=== PATIENT | male | born 1950 | race Caucasian/White ===

== ENCOUNTER 2016-06-08 11:04 | Outpatient (CLI) | payer MEDICARE, OTHER | END 2016-06-08 11:05 | disposition home or self-care (01) | DX: M19.011 Primary osteoarthritis, right shoulder (principal) ==

== ENCOUNTER 2016-11-23 09:09 | Outpatient (CLI) | payer MEDICARE, OTHER ==
--- NOTE | 2016-11-23 12:01 | CT Report ---
CT LUMBAR SPINE WITHOUT CONTRAST INDICATION: 66-year-old male with low back pain. Please assess. TECHNIQUE: Helical scan with reconstruction into 2 mm axial images. In addition, sagittal and coronal reformatio ns have been generated. In accordance with CT protocol optimization, one or more of the following dose reduction techniques w ere utilized for this exam: automated exposure control, adjustment of mA and/or KV based on patient s ize, or use of iterative reconstructive technique. COMPARISON: None. FINDINGS: There are 5 [id number], lumbar-type vertebrae. There is a minor, dextroconvex curvature with apex at L3. In the sagittal plane there is mild retroli sthesis of L5 on S1 (roughly 3.5 mm) with minor retrolisthesis of L1 on L2, L2 on L3 and L3 on L4. Al ignment is otherwise unremarkable. There is mild anterior wedging of the T12 vertebral body. This can be seen as a normal anatomical sarah iant at the thoracolumbar junction or this may represent the sequela of remote, endplate compression fracture. The vertebral body heights are otherwise maintained. The pedicles and posterior elements ap pear intact. No lytic or destructive bone lesion is demonstrated. There is moderate to severe degenerative disk space narrowing at L5-S1, most prominent paracentrally to the right. Vacuum changes are seen within the disk. The lumbar disk space heights are otherwise re latively preserved. Axial images: T12-L1: No disk herniation. No spinal canal or foraminal stenosis. L1-L2: Circumferential disk bulge with small left intra-/extraforaminal protrusion. Mild redundancy o f ligamenta flava. Mild prominence of intralaminar fat pad. Circumferential thecal sac compression. T he mid sagittal canal diameter appears to be on the order of about 9 mm. This should not represent si gnificant spinal stenosis. There is mild left foraminal stenosis. L2-L3: Small intra-/extraforaminal protrusions bilaterally. Mild redundancy of ligamenta flava and mi ld prominence of intralaminar fat pad. Mass effect on the dorsal aspect of the thecal sac without sig nificant appearing spinal stenosis. Minimal foraminal narrowing. L3-L4: Small intra-/extraforaminal protrusions bilaterally. Mild redundancy of ligamenta flava. Promi nent intralaminar fat pad. Mass effect on the dorsal aspect of the dural sac. The mid sagittal canal diameter is reduced to about 7.6 mm, compared to about 9 mm at the level above. This suggests at leas t mild spinal canal narrowing at this level. There is mild foraminal narrowing bilaterally. L4-L5: Circumferential disk bulge. Broad-based, left paracentral and intra-/extraforaminal protrusion or extrusion. There is fairly advanced degenerative facet arthrosis. Prominent vacuum changes are se en in the facet joints bilaterally. Mild to moderate bony hypertrophy. Moderate redundancy of ligamen ta flava. Mild prominence of intralaminar fat pad. Circumferential thecal sac compression with at zakiya st moderate generalized (central and subarticular zone) spinal stenosis. Suspect significant left-shai ed foraminal narrowing. Perineural fat surrounding exiting left L5 nerve root appears effaced, possib ly secondary to superiorly directed, intraforaminal extrusion. There may be compromise of exiting lef t L4 nerve root. L5-S1: Broad-based posterior protrusion with associated osteophyte. There is contact with the dural s leeves for traversing S1 nerve roots. However, no obvious mass effect on either S1 nerve root is demo nstrated. No central zone spinal stenosis. Broad-based intra-/extraforaminal disk herniations with as sociated osteophyte on the right. Degenerative facet arthrosis with mild left and moderate right face t hypertrophy. Moderate to severe left and severe right foraminal stenoses. Perineural fat surroundin g exiting L5 nerve roots is partially effaced bilaterally. Of note, there is ankylosis of the facet joints bilaterally. This may be secondary to long-standing a dvanced degenerative joint disease or could represent the sequela of previous sacroiliitis. Noted is a small metal density object, in posterior cortex right ilium with extension into adjacent, soft tissues (see images number 130 through 138, presumably related to known right-sided total hip ar throplasty. There is minor calcified atherosclerotic plaque in the abdominal aorta. No aneurysm is demonstrated. IMPRESSION: 1. Degenerative disk and facet changes are seen throughout the lumbar spine as documented in detail alex arevalo. 2. There is potentially significant foraminal narrowing on the left at L4-L5 and bilaterally at L5-S1 . There certainly could be compromise of one or more of the exiting right L5, left L4 and/or left L5 nerve roots. Clinical correlation is advised. 3. Degenerative changes give rise to at least moderate spinal stenosis at the L4-L5 level. 4. 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 5. No other specific diagnostic findings. Referring Provider Line: [phone] SITE ID: [id number]
== END 2016-11-23 09:10 | disposition home or self-care (01) ==
LOC: DI 09:09
PROVIDERS: ATTEND Orthopaedic Surgery
DX: M51.26 Other intervertebral disc displacement, lumbar region (principal); M51.36 Other intervertebral disc degeneration, lumbar region; M47.896 Other spondylosis, lumbar region; M51.27 Other intervertebral disc displacement, lumbosacral region; M43.27 Fusion of spine, lumbosacral region; M47.897 Other spondylosis, lumbosacral region; M43.16 Spondylolisthesis, lumbar region
CPT/HCPCS: 72131

== ENCOUNTER 2017-01-19 10:55 | Outpatient (CLI) | payer MEDICARE, OTHER ==
[2017-01-19 18:05] LABS: BASOPHILS # (AUTO) 0.1 10^3/uL (0.0-0.1); EOSINOPHILS # (AUTO) 0.1 10^3/uL (0.0-0.7); EOSINOPHILS % (AUTO) 2.6 %; HCT - HEMATOCRIT 45.6 % (42.0-52.0); HGB - HEMOGLOBIN 15.2 g/dL (14.0-18.0); LYMPHOCYTES # (AUTO) 1.3 10^3/uL (1.5-3.5); LYMPHOCYTES % (AUTO) 25.4 %; MEAN CORPUSCULAR HEMOGLOBIN 34.9 pg (27.0-31.0); MEAN CORPUSCULAR HGB CONC 33.3 g/dL (32.0-36.0); MEAN CORPUSCULAR VOLUME 104.9 fL (80.0-94.0); MEAN PLATELET VOLUME 7.9 fL (7.4-11.4); MONOCYTES # (AUTO) 0.4 10^3/uL (0.0-1.0); MONOCYTES % (AUTO) 8.2 %; NEUTROPHILS # (AUTO) 3.3 10^3/uL (1.5-6.6); NEUTROPHILS % (AUTO) 62.8 %; NUCLEATED RED BLOOD CELLS AUTO 0.1 /100WBC; RED BLOOD COUNT 4.35 10^6/uL (4.70-6.10); RED CELL DISTRIBUTION WIDTH 14.9 % (12.0-15.0); UNCORRECTED WHITE BLOOD COUNT 5.2 x10^3/uL; WHITE BLOOD COUNT 5.2 x10^3/uL (4.8-10.8)
[2017-01-19 18:28] LABS: ALBUMIN/GLOBULIN RATIO 1.1 (1.0-2.2); BILIRUBIN,TOTAL 0.7 mg/dL (0.2-1.0); BUN - BLOOD UREA NITROGEN 10 mg/dL (6-20); CALCIUM 8.8 mg/dL (8.5-10.3); CARBON DIOXIDE - CO2 26 mmol/L (21-32); CHLORIDE 103 mmol/L (101-111); CHOL/HDL RATIO 3.9 (<5.0); CHOLESTEROL 188 mg/dL; CREATININE 0.9 mg/dL (0.6-1.2); GFR - MDRD 84 (>89); GLUCOSE 104 mg/dL (70-100); HDL CHOLESTEROL 48 mg/dL; LDL/HDL RATIO 2.3 (<3.6); POTASSIUM 3.7 mmol/L (3.5-5.0); SODIUM 137 mmol/L (135-145); TOTAL PROTEIN 7.2 g/dL (6.7-8.2); TRIGLYCERIDES 139 mg/dL; VLDL CHOLESTEROL 28 mg/dL
[2017-01-19 18:56] LABS: HEMOGLOBIN A1C 0.58 g/dL
== END 2017-01-19 10:56 | disposition home or self-care (01) ==
LOC: LAB.F 10:55
PROVIDERS: ATTEND Nurse Practitioner Primary Care
DX: E55.9 Vitamin D deficiency, unspecified (principal); R73.01 Impaired fasting glucose; I10 Essential (primary) hypertension; E88.81 Metabolic syndrome and other insulin resistance; F10.10 Alcohol abuse, uncomplicated; E78.5 Hyperlipidemia, unspecified
CPT/HCPCS: 36415; 80053; 80061; 82306; 83036; 84443; 85025

== ENCOUNTER 2018-02-08 09:08 | Outpatient (CLI) | payer MEDICARE, OTHER ==
[2018-02-08 17:50] LABS: BASOPHILS % (AUTO) 0.8 %; EOSINOPHILS # (AUTO) 0.2 10^3/uL (0.0-0.7); EOSINOPHILS % (AUTO) 3.1 %; HGB - HEMOGLOBIN 16.2 g/dL (14.0-18.0); LYMPHOCYTES # (AUTO) 1.2 10^3/uL (1.5-3.5); LYMPHOCYTES % (AUTO) 21.7 %; MEAN CORPUSCULAR VOLUME 111.8 fL (80.0-94.0); MEAN PLATELET VOLUME 7.7 fL (7.4-11.4); MONOCYTES # (AUTO) 0.5 10^3/uL (0.0-1.0); MONOCYTES % (AUTO) 9.3 %; NEUTROPHILS # (AUTO) 3.6 10^3/uL (1.5-6.6); NEUTROPHILS % (AUTO) 65.1 %; PLT - PLATELET COUNT 199 10^3/uL (130-450); RED BLOOD COUNT 4.25 10^6/uL (4.70-6.10); RED CELL DISTRIBUTION WIDTH 13.6 % (12.0-15.0); WHITE BLOOD COUNT 5.6 x10^3/uL (4.8-10.8)
[2018-02-08 18:08] LABS: HB2 TOTAL 17.1 g/dL; HEMOGLOBIN A1C 0.59 g/dL; HEMOGLOBIN A1C % 5.3 % (4.6-6.2)
[2018-02-08 18:14] LABS: ALBUMIN 3.8 g/dL (3.2-5.5); ALBUMIN/GLOBULIN RATIO 1.1 (1.0-2.2); ALKALINE PHOSPHATASE 74 IU/L (42-121); ALT ALANINE AMINOTRANSFERASE 36 IU/L (10-60); AST ASPARTATE AMINOTRANSFERASE 34 IU/L (10-42); BILIRUBIN,TOTAL 0.7 mg/dL (0.2-1.0); BUN - BLOOD UREA NITROGEN 11 mg/dL (6-20); CALCIUM 8.9 mg/dL (8.5-10.3); CARBON DIOXIDE - CO2 28 mmol/L (21-32); CHLORIDE 102 mmol/L (101-111); CHOL/HDL RATIO 3.9 (<5.0); CHOLESTEROL 205 mg/dL; GFR - MDRD 74 (>89); GLUCOSE 116 mg/dL (70-100); HDL CHOLESTEROL 53 mg/dL; LDL CHOLESTEROL,CALCULATED 130 mg/dL; LDL/HDL RATIO 2.5 (<3.6); SODIUM 137 mmol/L (135-145); TOTAL PROTEIN 7.2 g/dL (6.7-8.2); VLDL CHOLESTEROL 22 mg/dL
[2018-02-08 18:50] LABS: DIFFERENTIAL COMMENT MANUAL=AUTO DIFF; PLATELET MORPHOLOGY NORMAL APPEARANCE (NORMAL); RBC MORPHOLOGY (MULTIPLE) NORMAL APPEARANCE (NORMAL)
[2018-02-08 18:51] LABS: PLATELET ESTIMATE, MANUAL NORMAL (130-450,000) (NORMAL)
== END 2018-02-08 09:09 | disposition home or self-care (01) ==
LOC: LAB.F 09:08
PROVIDERS: ATTEND Nurse Practitioner Primary Care
DX: E78.5 Hyperlipidemia, unspecified (principal); R73.01 Impaired fasting glucose; E55.9 Vitamin D deficiency, unspecified; E88.81 Metabolic syndrome and other insulin resistance; I10 Essential (primary) hypertension; M10.9 Gout, unspecified; C43.9 Malignant melanoma of skin, unspecified; F10.10 Alcohol abuse, uncomplicated
CPT/HCPCS: 36415; 80053; 80061; 82306; 83036; 83721; 84443; 85025

== ENCOUNTER 2018-05-31 13:34 | Outpatient (CLI) | payer MEDICARE, OTHER ==
[2018-05-31 15:36] LABS: PSA FREE 0.173 ng/mL (0.16-2.81)
[2018-05-31 15:37] LABS: PSA TOTAL 1.618 ng/mL (0.000-2.000)
== END 2018-05-31 13:35 | disposition home or self-care (01) ==
LOC: LAB 13:34
PROVIDERS: ATTEND Nurse Practitioner Primary Care
DX: R39.9 Unspecified symptoms and signs involving the genitourinary system (principal); R97.20 Elevated prostate specific antigen [PSA]
CPT/HCPCS: 36415; 84153; 84154

== ENCOUNTER 2018-10-12 09:54 | Outpatient (CLI) | payer MEDICARE, OTHER ==
--- NOTE | 2018-10-13 15:59 | XRAY Report ---
Reason: HIP JOINT PAIN, LEFT OSTEOARTHRITIS Procedure Date: 10/12/2018 Accession Number: [id number] / [id number] Procedure: XR - Hip w/Pelvis 2-3V LT CPT Code: FULL RESULT: EXAM: LEFT HIP RADIOGRAPHY EXAM DATE: 10/12/2018 10:13 AM. CLINICAL HISTORY: HIP JOINT PAIN, LEFT OSTEOARTHRITIS. COMPARISON: HIP 2 VIEW RT 05/08/2015 12:11 PM. TECHNIQUE: 2 views. FINDINGS: Bones: Normal. No fractures or bone lesion. Joints: Mild to moderate left hip joint space narrowing with subchondral sclerosis. Prior right total hip arthroplasty. Soft Tissues: Normal. No soft tissue swelling. IMPRESSION: 1. Mild to moderate left hip degenerative changes with some progression since 05/08/2015. Kellgren Jt Grade 2-3. 2. Prior right total hip arthroplasty. Kellgren and Jt classification of osteoarthritis: Grade 0: no radiographic features of osteoarthritis are present Grade 1: doubtful joint space narrowing (JSN) and possible osteophytic lipping Grade 2: definite osteophytes and possible JSN on anteroposterior weight-bearing radiograph Grade 3: multiple osteophytes, definite JSN, sclerosis, possible bony deformity Grade 4: large osteophytes, marked JSN, severe sclerosis and definite bony deformity RADIA
== END 2018-10-12 09:55 | disposition home or self-care (01) ==
LOC: DI 09:54
PROVIDERS: ATTEND Nurse Practitioner
DX: M16.12 Unilateral primary osteoarthritis, left hip (principal); Z96.641 Presence of right artificial hip joint

== ENCOUNTER 2019-02-06 09:53 | Outpatient (CLI) | payer MEDICARE, OTHER ==
[2019-02-06 12:21] VITALS: BP 130/70
--- NOTE | 2019-02-06 12:21 | SLEEP CARE CONSULTATION ---
Information from patient questionnaire entered by Li Leone. I have reviewed and concur with the information entered by Li Leone. This document represents the service I personally performed and the decisions made by me, Zonia Rosales, RN, MSN, PACKING MACHINE INSPECTOR. History of Present Illness Reason for Visit: Previously diagnosed sleep apnea (Originally diagnosed in 1997 but unable to tolerate CPAP. Re-evaluated in 2003 and started using CPAP nightly. Again re-evaluated in 2013 with HST with AHI of 75 and lowest oxygen saturation of 73%. ), sleep apnea on CPAP therapy (He has been using CPAP nightly since diagnosis. HIs Airsense CPAP stopped working last July. He informed his DME who stated no longer on warranty and quoted large sum to repair until could update. He restarted use of his old CPAP Remstar which does not have data card. He has used it 6, 950 hours and 730 hours greated than 4 hours. ), Re-establish care (Patient last seen here in 2011. Since then has seen Dr. Roman who longer takes Medicare. Last sleep study completed ), Other (His Air Sense CPAP was set at 11-18.2cmH20 with median pressure of 12.9cm and 95th pressure 14.4cmH20. His Remstar is set at [id number].) Chief Complaint: reports: Unrefreshed sleep, Observed pauses in breathing, Fatigue Duration of Symptoms: 20 years Usual bedtime: 9:30 pm Time it takes to fall asleep: 30 mins or more Snores at night: No (sleeps alone) Observed to quit breathing while asleep: Yes (without CPAP ) Number of times waking at night: 3-4 Reasons for waking at night: reports: Bathroom Toss, Turn, or Twitch while sleeping: Yes Recalls having dreams: Yes (seldom) Usually gets out of bed at: 7:30 am Feels refreshed in the morning: No Morning headache: No Sleepy or fatigued during the day: Yes Ever fallen asleep while driving: No Takes day naps: No Prior sleep studies: Yes Year and Where: 1997 and 2003 in [place], 2014 Dr. Roman - Parasomnia Symptoms Ever been unable to move upon waking from sleep: No Walks in sleep: No Talks in sleep: No Ever acted out dreams in sleep: No Ever felt weak in the knees when startled or emotional: No Bothered by creepy, crawly, restless sensations in legs: Yes (rare ) Problems with memory or concentration: Yes CPAP Compliance Data - Data Reviewed with Patient Average duration of nightly device use: 9 hours Compliance rate %: 97 (June 2017) Current pressure setting (cmH2O): 11-18.2 Average residual AHI: 2 Subjective Patient concerns: reports: nasal congestion (mild in morning), dry mouth, nose, throat (mouth - most nights), other (uses nasal pillows). denies: aerophagia, mask discomfort, air blowing in eyes, mask leak noise, condensation in mask/hose, epistaxis Observed to snore while using device: No (sleeps alone ) Current pressure setting perceived as: comfortable On therapy, patient: reports: sleeping better, more rested overall (but residual fatigue.). denies: drowsiness while driving Initial [place] Sleepiness Scale score: 1 (in 2011) Current [place] Sleepiness Scale score: 2 Past Medical History Past Medical History: reports: Hypertension, Claustrophobia, Arthritis, Gout, Other (right hip replacement October 2018) Social History The patient is retired. Patient is Single and lives in [place]. Have you smoked in the past 12 months: No Alcohol use: Yes Alcohol amount and frequency: 2-4 daily Caffeine use: Yes Caffeine amount and frequency: 1 cup a day Family History Family history of sleep disordered breathing: No Allergies and Home Medications Known drug allergies: No Allergy and home medication list: allopurinol daily bupropion daily propranolol daily Review of Systems Weight gain over past 5 years: 40 Cardiovascular: reports: high blood pressure Respiratory: reports: shortness of breath (with stairs) Urinary: reports: frequency Neurological: reports: gait or balance problems (recent hip surgery of left and right replaced 10 years. ) Psychiatric: reports: anxiety, claustrophobia Ear/Nose/Throat: reports: sinus problems, dry mouth/throat Musculoskeletal: reports: joint pain, neck pain, back pain Immunologic: reports: sneezing Physical Exam Blood Pressure: 130/70 Cuff size: long Heart Rate: 64 O2 Saturation: 97 Height: 5 ft 7 in Weight (kg): 279 lb 6.4 oz Body Mass Index: 43.7 BMI Classification: Class 3 HEENT: No craniofacial malformation Nostrils: partially obstructed Turbinates: boggy Septum: deviated left Mouth and throat: narrow oropharynx Soft palate: long Hard palate: normal Uvula: normal (trimmed), edematous Uvula visualization: 0% Mallampati Class IV Tongue: normal in size Tonsils: small Chin and jaw: normal size and position Heart: regular rate and rhythm Lungs: clear bilaterally Abdomen: soft Extremities: no edema or clubbing Impression and Plan 1. Obstructive Sleep Apnea-Hypopnea Syndrome, very severe,on most recent evaluation in 2012 HST and reports improved sleep quality with CPAP use and daytime restfulness but residual fatigue. He reports being originally diagnosed about 1997 with unknown apnea severity and unable to use CPAP due to claustrophobia with a full face mask. Evidently a nasal mask was not offered. He went back for re-evaluation when started waking to gasping for air with sleep in 2003 in [place] and diagnosed with unknown severity of apnea. He started using CPAP with success with use of nasal pillows mask style. He states he has been using CPAP nightly since. However his last CPAP, an AirSense autoset stopped working in July 2017 from compliance obtained from SD card. He had good apnea control with a residual AHI of 2 on autorange of 11-18.2cmH20. He contacted his DME where he obtained the device who informed him that the warranty was no longer valid and it would cost significant funds to repair. He was unable to sleep without CPAP. Thus he remembered his old CPAP from original diagnosis was stored in closet and began using it. However, the data card is too old for download. [employer] does not accept this format when tried to obtain data. I was able to use a cord from an old CPAP in office to determine current total use of CPAP of 6950 hours total. The DME he obtained his Air Sense stopped business and transfered patient to [facility] where he is getting his mask supplies. I will try to see if his CPAP can be repaired or replaced by his current DME [facility]. Until then the Remstar was reset at [id number] as his Airsense from [id number] as he felt the AirSense pressure more comfortable. I will have patient return in 2 months to check efficacy of his new or repaired CPAP. For his oral dryness, he is advised to restart the humidity now that he has found the instructions. This could also reduce his nasal congestion. I discussed the importance of losing weight as his BMI is 40 which can increase health risks. He has an appointment w ith his PCP soon and can discuss at that time. Patient's apnea severity and rationale for treatment to reduce apnea, improve sleep quality and reduce cardiovascular and cerebrovascular events was reviewed. I also reviewed the benefit of consistent device use of CPAP for hypertension, anxiety. His physical exam showed narrow airway and obesity which contribute to apnea risk. Patient does not want another polysomnograpy to re-evaluate his apnea. I informed him that it appears he has continued to use CPAP and that another evaluation would only be completed if insurance required for him to replace his CPAP. I also explained a HST home sleep study could be completed as before. * Repair or Replace AirSense auto CPAP * Change Remstar CPAP pressure to 11-18 cmH2O * Add humidifier to reduce oral dryness. * Notify me if snoring with mask or feeling that the pressure is too much or too little * Attempt to lose weight and discuss with PCP * Return for follow up in 2 months, or sooner if concerns arise I spent 100% of this 60 minute visit face to face with the patient with greater than 50% of this was spent time counseling the patient and coordination of care.
== END 2019-02-06 09:54 | disposition home or self-care (01) ==
LOC: SC 09:53
PROVIDERS: ATTEND Nurse Practitioner Family
DX: G47.33 Obstructive sleep apnea (adult) (pediatric) (principal)
CPT/HCPCS: 99205; G0463; 99212

== ENCOUNTER 2019-02-21 07:48 | Outpatient (CLI) | payer MEDICARE, OTHER ==
[2019-02-21 08:37] LABS: BASOPHILS # (AUTO) 0.1 10^3/uL (0.0-0.1); BASOPHILS % (AUTO) 0.9 %; EOSINOPHILS # (AUTO) 0.2 10^3/uL (0.0-0.7); EOSINOPHILS % (AUTO) 2.7 %; HGB - HEMOGLOBIN 16.2 g/dL (14.0-18.0); LYMPHOCYTES # (AUTO) 1.1 10^3/uL (1.5-3.5); LYMPHOCYTES % (AUTO) 20.6 %; MEAN CORPUSCULAR HEMOGLOBIN 35.1 pg (27.0-31.0); MEAN CORPUSCULAR HGB CONC 32.9 g/dL (32.0-36.0); MEAN CORPUSCULAR VOLUME 106.5 fL (80.0-94.0); MEAN PLATELET VOLUME 9.4 fL (7.4-11.4); MONOCYTES # (AUTO) 0.4 10^3/uL (0.0-1.0); NEUTROPHILS # (AUTO) 3.7 10^3/uL (1.5-6.6); NEUTROPHILS % (AUTO) 66.7 %; PLT - PLATELET COUNT 237 10^3/uL (130-450); RED BLOOD COUNT 4.62 10^6/uL (4.70-6.10); RED CELL DISTRIBUTION WIDTH 13.3 % (12.0-15.0); WHITE BLOOD COUNT 5.5 x10^3/uL (4.8-10.8)
[2019-02-21 08:43] LABS: ALBUMIN 3.6 g/dL (3.2-5.5); ALBUMIN/GLOBULIN RATIO 0.9 (1.0-2.2); ALKALINE PHOSPHATASE 89 IU/L (42-121); ALT ALANINE AMINOTRANSFERASE 28 IU/L (10-60); AST ASPARTATE AMINOTRANSFERASE 28 IU/L (10-42); BILIRUBIN,TOTAL 0.8 mg/dL (0.2-1.0); BUN - BLOOD UREA NITROGEN 14 mg/dL (6-20); CALCIUM 9.1 mg/dL (8.5-10.3); CARBON DIOXIDE - CO2 26 mmol/L (21-32); CHLORIDE 104 mmol/L (101-111); CHOLESTEROL 206 mg/dL; CREATININE 0.8 mg/dL (0.6-1.2); GFR - MDRD 96 (>89); GLUCOSE 113 mg/dL (70-100); HDL CHOLESTEROL 51 mg/dL; LDL CHOLESTEROL,CALCULATED 106 mg/dL; LDL/HDL RATIO 2.1 (<3.6); SODIUM 138 mmol/L (135-145); TOTAL PROTEIN 7.6 g/dL (6.7-8.2); URIC ACID 5.3 mg/dL (2.6-7.2); VLDL CHOLESTEROL 49 mg/dL
[2019-02-21 09:02] LABS: HB2 TOTAL 16.7 g/dL; HEMOGLOBIN A1C 0.6 g/dL; HEMOGLOBIN A1C % 5.4 % (4.6-6.2)
== END 2019-02-21 07:49 | disposition home or self-care (01) ==
LOC: LAB 07:48
PROVIDERS: ATTEND Nurse Practitioner
DX: Z00.00 Encounter for general adult medical examination without abnormal findings (principal); D75.89 Other specified diseases of blood and blood-forming organs; R73.01 Impaired fasting glucose; E78.5 Hyperlipidemia, unspecified; E55.9 Vitamin D deficiency, unspecified; F10.10 Alcohol abuse, uncomplicated; M10.9 Gout, unspecified; I10 Essential (primary) hypertension
CPT/HCPCS: 36415; 80053; 80061; 82306; 83036; 83721; 84443; 84550; 85025

== ENCOUNTER 2019-04-16 13:38 | Day surgery (SDC) | payer MEDICARE, OTHER ==
[2019-04-16] MEDS ORDERED: LACTATED RINGERS 1,000 ML IV ONE (14:17)
[2019-04-16] MEDS ORDERED: fentaNYL 250 MCG/5 ML VIAL IVP ONE (16:08)
[2019-04-16] MEDS ORDERED: MIDAZOLAM 2 MG/2 ML VIAL IVP ONE (16:08)
[2019-04-16 17:08] VITALS: BP 127/81
== END 2019-04-16 13:39 | disposition home or self-care (01) ==
LOC: SDS 13:38
PROVIDERS: ATTEND Surgery
PROC: 0DJD8ZZ Inspection of Lower Intestinal Tract, Via Natural or Artificial Opening Endoscopic (ICD-10-PCS; principal; 2019-04-16 14:45)
DX: Z12.11 Encounter for screening for malignant neoplasm of colon (principal); K57.30 Diverticulosis of large intestine without perforation or abscess without bleeding; E66.9 Obesity, unspecified; I10 Essential (primary) hypertension; Z85.820 Personal history of malignant melanoma of skin; Z87.891 Personal history of nicotine dependence; Z68.41 Body mass index [BMI] 40.0-44.9, adult; Z79.899 Other long term (current) drug therapy
CPT/HCPCS: G0121; J7120

== ENCOUNTER 2019-10-16 14:02 | Outpatient (CLI) | payer MEDICARE, OTHER ==
--- NOTE | 2019-10-16 11:30 | SLEEP CARE CONSULTATION ---
Information from patient questionnaire entered by Li Leone. I have reviewed and concur with the information entered by Li Leone. This document represents the service I personally performed and the decisions made by me, Zonia Rosales, RN, MSN, FURNITURE ARRANGER. History of Present Illness Service Date and Time: 10/16/2019 1100 Previous diagnosis: Very Severe, Obstructive Sleep Apnea-Hypopnea Syndrome AHI: 75 (in 2012) Reason for follow up: other (9 month, new device) Equipment type: CPAP Equipment obtained from: [employer] (getting suppplies as needed) Mask style: Nasal pillows Backup mask available: No (keep current mask as spare when replaced) Last cushion change: 2 weeks Prior sleep studies: Yes Year and Where: 2012 - [facility] Type of Sleep Study: Home sleep study HPI additional information: Patient has been notified that he is due for a new CPAP next week. Since then he has been using an old CPAP that does not have a data that can be read - no data at this visit. Last time seen, I had to plug in device and read the device hours of use. Patient states he uses his CPAP nightly from 9:30pm to 7:30 am. He is anxious to have his old CPAP replaced. Subjective Patient concerns: reports: dry mouth, nose, throat (occasional dry mouth - mild ). denies: aerophagia, mask discomfort, air blowing in eyes, mask leak noise, condensation in mask/hose, nasal congestion, epistaxis, other Observed to snore while using device: No Current pressure setting perceived as: comfortable On therapy, patient: reports: sleeping better, awakening more refreshed, being more awake and alert during the day, more rested overall, drowsiness while driving Initial [place] Sleepiness Scale score: 1 (in 2011) Allergies and Home Medications Home medication list reviewed: No (no changes stated) Review of Systems Review of systems same as previous: Yes Physical Exam Height: 5 ft 7 in Weight: 285 lb (home weight) Body Mass Index: 44.6 BMI Classification: Morbidly Obese Impression and Plan 1. Obstructive Sleep Apnea-Hypopnea Syndrome, very severe, with unknown treatment compliance and unknown apnea control. As noted at last visit note, patient is using his old CPAP and his data card no longer is able to be downloaded on [employer]. At last visit, I was able to check hours used on his device and pressure settings only. Patient states that he uses CPAP nightly for 9-10 hours. I asked about length of time and it appears patient will go to bed early if nother to do. I explained how most people require 7-9 hours of sleep. Extra sleep or time in bed can contribute to fatigue or be a sign of another medical condition. He is advised to discuss with his PCP and agreed. On CPAP therapy, the patient has better sleep quality and is more rested overall. He is very pleased with benefit of treatment and pleased that he can now update his CPAP. An order will be written. Compliance guidelines reviewed and patient advised to contact my office to set up a follow up appointment as soon as he receives his new CPAP. His Oral dryness can be reduced by adjusting humidity setting higher. General verbal instructions given but patient stated he will defer until he gets new device which he knows how to adjust settings. It was also noted that he is morbidly obese with current weight. He states he struggles with weight and is aware of need to lose. I discussed health risks associated with obesity are similar to untreated severe apnea. I counseled him to discuss with his PCP and a referral to a off track betting manager as a assistant football coach to assist him to lose weight. I have had many patients lose weight with help of a off track betting manager. He agreed with plan. Patient's apnea severity and rationale for treatment to reduce apnea, improve sleep quality and reduce hypertension, cardiovascular and cerebrovascular events was reviewed. * Update Device set at autoCPAP pressure at 11-18 cmH2O * adjust humidity * Notify me if snoring with mask or feeling that the pressure is too much or too little * Attempt to lose weight * Call this office if any problems using CPAP * Return for follow up in one month after new device, or sooner if concerns arise Visit Type: Telehealth Phone Patient Location: Home Location of Provider: Home Patient agrees and consents to this telehealth visit type: Yes Patient agrees to have their insurance billed: Yes Time Spent with Patient (minutes): 10+ Provider Statement: I spent 100% of the Telehealth Phone Call with the patient with greater than 50% spent counseling the patient and coordination of care.
== END 2019-10-16 14:03 | disposition home or self-care (01) ==
LOC: SC 14:02
PROVIDERS: ATTEND Nurse Practitioner Family
DX: G47.33 Obstructive sleep apnea (adult) (pediatric) (principal); E66.01 Morbid (severe) obesity due to excess calories; Z68.41 Body mass index [BMI] 40.0-44.9, adult

== ENCOUNTER 2019-12-04 10:11 | Outpatient (CLI) | payer MEDICARE, OTHER | END 2019-12-04 10:12 | disposition home or self-care (01) | LOC: LAB 10:11 | PROVIDERS: ATTEND Nurse Practitioner | DX: Z11.59 Encounter for screening for other viral diseases (principal) | CPT/HCPCS: 81599 ==

== ENCOUNTER 2020-02-19 08:27 | Outpatient (CLI) | payer MEDICARE, OTHER ==
[2020-02-19 09:08] LABS: BASOPHILS % (AUTO) 0.9 %; EOSINOPHILS # (AUTO) 0.2 10^3/uL (0.0-0.7); EOSINOPHILS % (AUTO) 3.6 %; HGB - HEMOGLOBIN 15.8 g/dL (14.0-18.0); LYMPHOCYTES # (AUTO) 1.2 10^3/uL (1.5-3.5); LYMPHOCYTES % (AUTO) 27.8 %; MEAN CORPUSCULAR HEMOGLOBIN 38.3 pg (27.0-31.0); MEAN CORPUSCULAR HGB CONC 34.5 g/dL (32.0-36.0); MEAN CORPUSCULAR VOLUME 111.2 fL (80.0-94.0); MEAN PLATELET VOLUME 9.5 fL (7.4-11.4); MONOCYTES # (AUTO) 0.4 10^3/uL (0.0-1.0); MONOCYTES % (AUTO) 8.4 %; NEUTROPHILS # (AUTO) 2.6 10^3/uL (1.5-6.6); NEUTROPHILS % (AUTO) 58.8 %; PLT - PLATELET COUNT 191 10^3/uL (130-450); RED BLOOD COUNT 4.12 10^6/uL (4.70-6.10); RED CELL DISTRIBUTION WIDTH 13.1 % (12.0-15.0); WHITE BLOOD COUNT 4.4 x10^3/uL (4.8-10.8)
[2020-02-19 09:12] LABS: ALBUMIN 3.6 g/dL (3.2-5.5); ALBUMIN/GLOBULIN RATIO 0.9 (1.0-2.2); ALKALINE PHOSPHATASE 76 IU/L (42-121); ALT ALANINE AMINOTRANSFERASE 59 IU/L (10-60); AST ASPARTATE AMINOTRANSFERASE 57 IU/L (10-42); BILIRUBIN,TOTAL 0.8 mg/dL (0.2-1.0); BUN - BLOOD UREA NITROGEN 13 mg/dL (6-20); CALCIUM 8.9 mg/dL (8.5-10.3); CARBON DIOXIDE - CO2 25 mmol/L (21-32); CHLORIDE 103 mmol/L (101-111); CHOL/HDL RATIO 3.8 (<5.0); CHOLESTEROL 202 mg/dL; CREATININE 0.9 mg/dL (0.6-1.2); GLUCOSE 104 mg/dL (70-100); HDL CHOLESTEROL 53 mg/dL; LDL CHOLESTEROL,CALCULATED 113 mg/dL; LDL/HDL RATIO 2.1 (<3.6); SODIUM 139 mmol/L (135-145); TOTAL PROTEIN 7.4 g/dL (6.7-8.2); VLDL CHOLESTEROL 36 mg/dL
[2020-02-19 10:02] LABS: PLATELET ESTIMATE, MANUAL NORMAL (130-450,000) (NORMAL); PLATELET MORPHOLOGY NORMAL APPEARANCE (NORMAL); RBC MORPHOLOGY (MULTIPLE) 2+ MACROCYTOSIS (NORMAL)
== END 2020-02-19 08:28 | disposition home or self-care (01) ==
LOC: LAB 08:27
PROVIDERS: ATTEND Nurse Practitioner
DX: I10 Essential (primary) hypertension (principal); E78.5 Hyperlipidemia, unspecified; F10.10 Alcohol abuse, uncomplicated
CPT/HCPCS: 36415; 80053; 80061; 82607; 83721; 84153; 84443; 85025

== ENCOUNTER 2020-08-10 11:38 | Outpatient (CLI) | payer MEDICARE, OTHER ==
[2020-08-10 14:59] LABS: BASOPHILS # (AUTO) 0.1 10^3/uL (0.0-0.1); EOSINOPHILS # (AUTO) 0.2 10^3/uL (0.0-0.7); EOSINOPHILS % (AUTO) 3.2 %; HCT - HEMATOCRIT 49.6 % (42.0-52.0); LYMPHOCYTES # (AUTO) 1.3 10^3/uL (1.5-3.5); LYMPHOCYTES % (AUTO) 26.3 %; MEAN CORPUSCULAR HEMOGLOBIN 38.1 pg (27.0-31.0); MEAN CORPUSCULAR HGB CONC 34.3 g/dL (32.0-36.0); MEAN CORPUSCULAR VOLUME 111.2 fL (80.0-94.0); MONOCYTES # (AUTO) 0.5 10^3/uL (0.0-1.0); MONOCYTES % (AUTO) 10.1 %; NEUTROPHILS % (AUTO) 58.8 %; PLT - PLATELET COUNT 202 10^3/uL (130-450); RED BLOOD COUNT 4.46 10^6/uL (4.70-6.10); RED CELL DISTRIBUTION WIDTH 12.8 % (12.0-15.0); WHITE BLOOD COUNT 5.1 x10^3/uL (4.8-10.8)
[2020-08-10 15:06] LABS: SLIDE REVIEW? Indicated
[2020-08-10 15:16] LABS: ESTIMATED AVERAGE GLUCOSE 117 mg/dL (70-100); HEMOGLOBIN A1c% 5.7 % (4.27-6.07)
[2020-08-10 15:39] LABS: ALBUMIN 3.8 g/dL (3.2-5.5); BILIRUBIN,TOTAL 0.8 mg/dL (0.2-1.0); CALCIUM 9.1 mg/dL (8.5-10.3); CREATININE 0.9 mg/dL (0.6-1.2); POTASSIUM 4.3 mmol/L (3.5-5.0); TOTAL PROTEIN 7.8 g/dL (6.7-8.2)
[2020-08-10 16:28] LABS: RBC MORPHOLOGY (MULTIPLE) 2+ MACROCYTOSIS (NORMAL)
[2020-08-10 16:29] LABS: PLATELET ESTIMATE, MANUAL NORMAL (130-450,000) (NORMAL); PLATELET MORPHOLOGY NORMAL APPEARANCE (NORMAL)
== END 2020-08-10 11:39 | disposition home or self-care (01) ==
LOC: LAB.S 11:38
PROVIDERS: ATTEND Nurse Practitioner
DX: K21.9 Gastro-esophageal reflux disease without esophagitis (principal); D75.89 Other specified diseases of blood and blood-forming organs; G25.0 Essential tremor; F10.10 Alcohol abuse, uncomplicated; R73.01 Impaired fasting glucose
CPT/HCPCS: 36415; 80053; 83036; 85025

== ENCOUNTER 2020-10-20 11:52 | Emergency (ER) | payer MEDICARE, OTHER ==
[2020-10-20] MEDS ORDERED: diazePAM INJ 5 MG/ML SYRINGE IM STA (12:33)
[2020-10-20] MEDS ORDERED: KETOROLAC 60 MG/2 ML VIAL IM STA (12:33)
--- NOTE | 2020-10-20 12:36 | ED Physician Documentation ---
History of Present Illness - Stated complaint Stated Complaint: NECK PX - Chief complaint Chief Complaint: General - Additonal information Additional information: 70-year-old male presents the emergency department for evaluation of acute on chronic midline neck pain. He reports that this exacerbation of pain began about 24 hours ago he woke up from sleep and found that his neck was so stiff he could barely move. However 3 days ago he used a neck massager at [facility] [place] that helped with neck pain in the moment, but now wonders if he overdid it. He does report that he took his brothers leftover oxycodone (his brother recently and was on hospice; thsi was left over medication) and found minimal relief of this pain. Since then he has tried CBD oil as well as a foam neck brace with minimal relief. The pain is sharp originating in the mid spine and radiating across both sides of the neck. Does not extend to the jaw chest arm. Pain is worse with movement. Intermittently through the years he has had some episodes of neck pain that typically respond to light massage or [id number] medications. He denies any new falls or trauma. No paresthesias or weakness in the upper extremities. He is scheduled for a visit with his primary care provider in 48 hours. Review of Systems Constitutional: denies: Fever, Chills Eyes: reports: Reviewed and negative Ears: reports: Reviewed and negative Nose: reports: Reviewed and negative Throat: reports: Reviewed and negative Cardiac: denies: Chest pain / pressure, Palpitations Respiratory: denies: Dyspnea, Cough GI: reports: Reviewed and negative : reports: Reviewed and negative Skin: reports: Reviewed and negative Musculoskeletal: reports: Neck pain Neurologic: denies: Generalized weakness, Focal weakness, Numbness Psychiatric: reports: Reviewed and negative Endocrine: reports: Reviewed and negative PD PAST MEDICAL HISTORY - Past Medical History Past Medical History: No Cardiovascular: Hypertension, Other Respiratory: Sleep apnea, CPAP use Endocrine/Autoimmune: None GI: Colon polyps : None HEENT: Chronic vision loss Psych: Claustrophobia Musculoskeletal: Osteoarthritis, Gout, Chronic back pain Derm: None - Past Surgical History Past Surgical History: Yes General: Colonoscopy Ortho: Hip replacement, Rotator cuff repair, Other Derm: Skin cancer surgery - Present Medications Home Medications: Ambulatory Orders Medication Instructions Recorded Confirmed Cholecalciferol [Vitamin D3] 1 DAILY 04/16/19 Colchicine 1 DAILY 04/16/19 Multivit-Min/Ferrous Sulfate 1 DAILY 04/16/19 [Multilex Tablet] Potassium &Magnesium Aspartate [Ra 1 DAILY 04/16/19 Potassium-Magnesium Asp 250] Propranolol HCl 1 BID 04/16/19 allopurinoL [Allopurinol] 1 DAILY 04/16/19 buPROPion [Wellbutrin Sr] 1 BID 04/16/19 Methocarbamol [Robaxin-750] 750 mg PO TID PRN #30 tablet 10/20/20 - Allergies Allergies/Adverse Reactions: Allergies Allergy/AdvReac Type Severity Reaction Status Date / Time No Known Drug Allergies Allergy Verified 10/20/20 12:12 - Social History Does the pt smoke?: No Smoking Status: Never smoker PD ED PE EXPANDED - General General: Alert, In Pain, In distress - HEENT HEENT: PERRL - Eyes Eyes: PERRL - Neck Neck: Soft tissue TTP, Limited ROM (Both midline and bilateral paraspinous tenderness elicited with minimal palpation. Very reduced lateral and forward flexion of the neck secondary to pain. No swelling or erythema. Motor strength bilateral upper extremities intact. Normal grasp flexion/extension of shoulders elbows wrists hands). No: Adenopathy, No tenderness, Bony TTP - Cardiac Cardiac: Regular Rate, Radial strong equal, Cap refill < 2 sec. No: Murmur P resent - Respiratory Respiratory: Clear to ausultation dragan. No: Distress, Labored - Neuro Neuro: Alert and Oriented X 3, CNII-XII intact - GCS Eye Opening: Spontaneous Motor: Obeys Commands Verbal: Oriented Total: 15 Results - Vitals Vitals: Vital Signs - 24 hr 10/20/20 12:07 Temperature 36.4 C L Heart Rate 73 Respiratory 14 Rate Blood Pressure 146/100 H O2 Saturation 97 Oxygen O2 Source Room air PD MEDICAL DECISION MAKING - ED course Complexity details: re-evaluated patient, d/w patient ED course: 70-year-old male presents the emergency department for evaluation of acute neck pain that he woke up with yesterday morning. He has 3 reported history of chronic neck pain that intermittently flares but usually turns up by using CBD oil or [id number] ibuprofen. This episode of neck pain seems exacerbated by the use of the home massager 3 days ago while he was at a friend's house for dinner. He does not have any red flags focal weakness or paresthesias. Initially given the age I did order a CT of his neck but due to severe claustrophobia patient did not tolerate the CT and it was not performed. I did attempt to get plain C- spine imaging but by the time x-ray had arrived his pain had begun to improve. After time in the emergency department with Toradol and Valium he is moving his neck much easier and he thinks that he may have overdone it with a neck massager. He is requesting to be discharged from the emergency department. He no longer wishes to pursue advanced imaging. I do suspect that this may be related to the use of the massager at home and will recommend a short course of NSAID medication as well as a muscle relaxer. Emergent return precautions were discussed for paresthesias focal weakness and fevers. Departure - Departure Disposition: 01 Home, Self Care Clinical Impression: Neck pain Condition: Stable Record reviewed to determine appropriate education?: Yes Instructions: ED Neck Back Pain General Prescriptions: Methocarbamol [Robaxin-750] 750 mg PO TID PRN #30 tablet PRN Reason: Spasms Comments: Quincy morales were seen in the emergency department today for neck pain that began yesterday morning. This pain seems to have followed the use of a home ball neck massager. It is quite possible that overuse of this has worsened your musculoskeletal neck pain. I do think that you would benefit from taking ibuprofen with food 3 times a day for the next 3 to 4 days. I have also prescribed methocarbamol which is a muscle relaxer that may also help with your neck and back pain. Please use this medication cautiously as it may sedate you and make you unsafe to drive. Continue follow-up with your primary care provider as scheduled. If at any point you have weakness in your arms, cannot move your shoulders or develop any fevers or difficulty swallowing please return immediately to the ER for a second look.
[2020-10-20 14:16] VITALS: BP 165/80
== END 2020-10-20 14:16 | disposition home or self-care (01) ==
LOC: ED 11:52
DX: M54.2 Cervicalgia (principal); G89.29 Other chronic pain; F40.240 Claustrophobia; I10 Essential (primary) hypertension
CPT/HCPCS: 96372; 99284

== ENCOUNTER 2021-01-05 10:04 | Outpatient (CLI) | payer MEDICARE, OTHER ==
[2021-01-05 15:15] LABS: BASOPHILS # (AUTO) 0.1 10^3/uL (0.0-0.1); BASOPHILS % (AUTO) 0.9 %; EOSINOPHILS # (AUTO) 0.2 10^3/uL (0.0-0.7); EOSINOPHILS % (AUTO) 3.2 %; HCT - HEMATOCRIT 48.1 % (42.0-52.0); HGB - HEMOGLOBIN 15.8 g/dL (14.0-18.0); LYMPHOCYTES # (AUTO) 1.3 10^3/uL (1.5-3.5); LYMPHOCYTES % (AUTO) 22.8 %; MEAN CORPUSCULAR HEMOGLOBIN 37.7 pg (27.0-31.0); MEAN CORPUSCULAR HGB CONC 32.8 g/dL (32.0-36.0); MEAN CORPUSCULAR VOLUME 114.8 fL (80.0-94.0); MEAN PLATELET VOLUME 9.9 fL (7.4-11.4); MONOCYTES # (AUTO) 0.5 10^3/uL (0.0-1.0); MONOCYTES % (AUTO) 8.1 %; NEUTROPHILS # (AUTO) 3.7 10^3/uL (1.5-6.6); NEUTROPHILS % (AUTO) 64.3 %; PLT - PLATELET COUNT 178 10^3/uL (130-450); RED BLOOD COUNT 4.19 10^6/uL (4.70-6.10); RED CELL DISTRIBUTION WIDTH 14.1 % (12.0-15.0); WHITE BLOOD COUNT 5.7 x10^3/uL (4.8-10.8)
[2021-01-05 15:22] LABS: SLIDE REVIEW? Indicated
[2021-01-05 15:39] LABS: ALBUMIN 3.6 g/dL (3.2-5.5); ALBUMIN/GLOBULIN RATIO 0.9 (1.0-2.2); BILIRUBIN,TOTAL 0.9 mg/dL (0.2-1.0); CALCIUM 9.3 mg/dL (8.5-10.3); CREATININE 0.8 mg/dL (0.6-1.2); POTASSIUM 3.8 mmol/L (3.5-5.0); TOTAL PROTEIN 7.5 g/dL (6.7-8.2); URIC ACID 4.4 mg/dL (2.6-7.2)
[2021-01-05 15:46] LABS: RHEUMATOID FACTOR NEGATIVE (Negative)
[2021-01-05 16:02] LABS: PLATELET ESTIMATE, MANUAL NORMAL (130-450,000) (NORMAL); PLATELET MORPHOLOGY NORMAL APPEARANCE (NORMAL)
== END 2021-01-05 10:05 | disposition home or self-care (01) ==
LOC: LAB.S 10:04
PROVIDERS: ATTEND Internal Medicine
DX: I10 Essential (primary) hypertension (principal); M10.9 Gout, unspecified; M25.562 Pain in left knee
CPT/HCPCS: 36415; 80053; 84550; 85025; 85651; 86430

== ENCOUNTER 2021-01-14 11:19 | Outpatient (CLI) | payer MEDICARE, OTHER ==
--- NOTE | 2021-01-14 11:53 | SLEEP CARE CONSULTATION ---
Information from patient questionnaire entered by Li Varghese. I have reviewed and concur with the information entered by Li Varghese. This document represents the service I personally performed and the decisions made by , Suzanna Hays ARNP. History of Present Illness Service Date and Time: 01/14/2021 1119 Previous diagnosis: Very Severe, Obstructive Sleep Apnea-Hypopnea Syndrome AHI: 75 (in 2012) Reason for follow up: annual (last seen 12/2019) Equipment type: CPAP Equipment obtained from: [facility] (getting supplies as needed) Mask style: Nasal pillows Backup mask available: Yes (old mask) Prior sleep studies: Yes Year and Where: 2013 - [facility] additional information: CELSO VARGHESE was diagnosed to have very severe, AHI 75, obstructive sleep apnea-hypopnea syndrome and returned today for CPAP therapy annual follow-up. CPAP Compliance Data - Data Reviewed with Patient Average duration of nightly device use: 11 hr Compliance rate %: 99 (180 days) Current pressure setting (cmH2O): 12-19 Humidity settin Average residual AHI: 2.4 Subjective Patient concerns: denies: aerophagia, mask discomfort, air blowing in eyes, mask leak noise, condensation in mask/hose, nasal congestion, dry mouth, nose, throat, epistaxis, other Observed to snore while using device: No Current pressure setting perceived as: comfortable On therapy, patient: reports: sleeping better, awakening more refreshed, being more awake and alert during the day, more rested overall. denies: drowsiness while driving Initial Cassel Sleepiness Scale score: 1 (in 2011) Current Cassel Sleepiness Scale score: 2 Allergies and Home Medications Home medication list reviewed: Yes (no changes) Review of Systems Review of systems same as previous: Yes (no changes) Physical Exam Heart Rate: 93 O2 Saturation: 96 Height: 5 ft 7 in Weight: 288 lb Body Mass Index: 45.1 BMI Classification: Morbidly Obese Impression and Plan 1. Obstructive Sleep Apnea-Hypopnea Syndrome, very severe, with excellent treatment compliance and good apnea control. On CPAP therapy, the patient has better sleep quality and is more rested overall. Patient is satisfied with current therapy and has significant improvement of his sleep apnea. He has stopped using his water chamber and heated hose. He forgot to put water in one night and felt fine so he decided to go without the humidity. He then took off the heated hose too. He states he has not oral dryness or nasal dryness without using the humidity chamber. Patient was advised to try to lose weight. Currently patients BMI is 45.1. Obesity increases the risk of apnea, CPAP pressure requirements and overall health risks especially cardiovascular and diabetes. Thus patient is advised to try to lose weight. Weight loss can be done with reducing portion size, reducing refined foods and balancing content with vegetab les, fruit and whole grain foods. The patient's CPAP pressure range should accommodate some weight loss. Symptoms to report for additional pressure adjustment discussed. Patient's apnea severity and rationale for treatment to reduce apnea, improve sleep quality and reduce cardiovascular and cerebrovascular events was reviewed. I also reviewed the benefit of consistent device use of CPAP for hypertension. * Continue auto CPAP pressure at 12-19 cmH2O * Notify me if snoring with mask or feeling that the pressure is too much or too little * Attempt to lose weight * Call this office if any problems using CPAP * Return for follow up in 1 year, or sooner if concerns arise Counseling Topics: Spare mask, Weight loss health impact Visit Type: In Office Time Spent with Patient (minutes): 20 Provider Statement: I spent 100% of the Face to Face Visit with the patient with greater than 50% spent counseling the patient and coordination of care.
== END 2021-01-14 11:20 | disposition home or self-care (01) ==
LOC: SC 11:19
PROVIDERS: ATTEND Nurse Practitioner Family
DX: G47.33 Obstructive sleep apnea (adult) (pediatric) (principal); E66.01 Morbid (severe) obesity due to excess calories; Z68.42 Body mass index [BMI] 45.0-49.9, adult
CPT/HCPCS: 99213; G0463; 99212

== ENCOUNTER 2021-03-04 09:18 | Outpatient (CLI) | payer MEDICARE, OTHER | END 2021-03-04 09:19 | disposition critical access hospital (66) | LOC: EMS 09:18 | DX: M79.604 Pain in right leg (principal) | CPT/HCPCS: A0425; A0427 ==

== ENCOUNTER 2021-03-04 09:35 | Emergency (ER) | payer MEDICARE, OTHER ==
[2021-03-04] MEDS ORDERED: DEXAMETHASONE 10 MG/ML VIAL IVP STA (09:54)
[2021-03-04] MEDS ORDERED: FOLIC ACID INJ 1 MG, THIAMINE INJ 100 MG, MAGNESIUM SULFATE 2 GM, MULTIVITAMIN 10 ML in... IV STA ×5 (09:54)
[2021-03-04] MEDS ORDERED: KETOROLAC 30 MG/ML VIAL IVP STA (09:56)
--- NOTE | 2021-03-04 09:57 | ED Physician Documentation ---
History of Present Illness - Stated complaint Stated Complaint: R LEG PX - Chief complaint Chief Complaint: Ext Problem - History obtained from History obtained from: Patient, EMS - History of Present Illness Timing: How many weeks ago (1) - Additonal information Additional information: 70-year-old male has been having some issue with pain in his right leg for the past 6 months and he has pain that radiates down into his calf over the past week this has changed his position to have more pain in the anterior calf and the patient is having enough symptoms that he went to have a massage done yesterday which temporarily helped but he is having enough pain that he is not able to walk well. He has not had an injury to the area that he is aware of. He does drink alcohol regularly 4-8 drinks a day. Review of Systems Constitutional: denies: Fever Eyes: denies: Decreased vision Ears: denies: Ear pain Nose: denies: Congestion Throat: denies: Sore throat Cardiac: denies: Chest pain / pressure Respiratory: denies: Dyspnea, Cough GI: denies: Abdominal Pain, Nausea, Vomiting : denies: Dysuria, Frequency Skin: denies: Rash Musculoskeletal: reports: Back pain, Extremity pain. denies: Neck pain Neurologic: denies: Generalized weakness, Focal weakness, Numbness PD PAST MEDICAL HISTORY - Past Medical History Cardiovascular: Hypertension, Other Respiratory: Sleep apnea, CPAP use Endocrine/Autoimmune: None GI: Colon polyps : None HEENT: Chronic vision loss Psych: Claustrophobia Musculoskeletal: Osteoarthritis, Gout, Chronic back pain Derm: None - Past Surgical History Past Surgical History: Yes General: Colonoscopy Ortho: Hip replacement, Rotator cuff repair, Other Derm: Skin cancer surgery - Present Medications Home Medications: Ambulatory Orders Medication Instructions Recorded Confirmed Cholecalciferol [Vitamin D3] 1 DAILY 04/16/19 Colchicine 1 DAILY 04/16/19 Multivit-Min/Ferrous Sulfate 1 DAILY 04/16/19 [Multilex Tablet] Potassium &Magnesium Aspartate [Ra 1 DAILY 04/16/19 Potassium-Magnesium Asp 250] Propranolol HCl 1 BID 04/16/19 allopurinoL [Allopurinol] 1 DAILY 04/16/19 buPROPion [Wellbutrin Sr] 1 BID 04/16/19 methocarbamoL [Robaxin-750] 750 mg PO TID PRN #30 tablet 10/20/20 Cyclobenzaprine [Flexeril] 10 mg PO TID PRN #20 tablet 03/04/21 HYDROcod/ACETAM 5/325 [[place] 5/325] 1 - 2 tablet PO Q6H PRN #14 tablet 03/04/21 - Allergies Allergies/Adverse Reactions: Allergies Allergy/AdvReac Type Severity Reaction Status Date / Time No Known Drug Allergies Allergy Verified 03/04/21 09:47 - Social History Does the pt smoke?: No Smoking Status: Never smoker Does the pt drink ETOH?: Yes - Immunizations Immunizations: TDAP current <10years, Other immun current PD ED PE NORMAL - Vitals Vital signs reviewed: Yes (hypertensive ) - General General: Alert and oriented X 3, No acute distress, Well developed/nourished - HEENT HEENT: Atraumatic, PERRL, EOMI - Neck Neck: Supple, no meningeal sign - Cardiac Cardiac: RRR, No murmur - Respiratory Respiratory: No respiratory distress, Clear bilaterally - Abdomen Abdomen: Normal bowel sounds, Soft, Non tender, Non distended, No organomegaly - Back Back: No CVA TTP, No spinal TTP - Derm Derm: Normal color, Warm and dry, No rash - Extremities Extremities: No deformity, No edema, Other (pain to palpation to the anterolateral calf on the right and pain into the sciatic notch on the right. 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, No motor deficit, No sensory deficit, Normal speech Eye Opening: Spontaneous Motor: Obeys Commands Verbal: Oriented GCS Score: 15 - Psych Psych: Normal mood, Normal affect Results - Vitals Vitals: Vital Signs - 24 hr 03/04/21 03/04/21 09:44 12:37 Temperature 36.6 C 36.7 C Heart Rate 88 77 Respiratory 19 18 Rate Blood Pressure 166/84 H 165/89 H O2 Saturation 97 98 Oxygen O2 Source Room air - Labs Labs: Laboratory Tests 03/04/21 03/04/21 10:02 10:02 WBC 6.2 RBC 4.38 L Hgb 16.9 Hct 49.1 MCV 112.1 H MCH 38.6 H MCHC 34.4 RDW 12.4 Plt Count 155 MPV 9.2 Neut # (Auto) 4.7 Lymph # (Auto) 0.8 L [place] # (Auto) 0.5 Eos # (Auto) 0.1 Baso # (Auto) 0.1 Absolute Nucleated RBC 0.00 Nucleated RBC % 0.0 Manual Slide Review Indicated Platelet Estimate NORMAL (130-450,000) Platelet Morphology NORMAL APPEARANCE RBC Morph Micro Appear 1+ MACROCYTOSIS Sodium 136 Potassium 3.8 Chloride 99 L Carbon Dioxide 27 Anion Gap 10.0 BUN 14 Creatinine 0.9 Estimated GFR (MDRD) 83 L Glucose 127 H Calcium 9.0 Total Bilirubin 1.1 H AST 98 H ALT 86 H Alkaline Phosphatase 78 Total Protein 7.5 Albumin 3.8 Globulin 3.7 Albumin/Globulin Ratio 1.0 Lipase 74 H Ethyl Alcohol < 5.0 Procedures - IVC sono (time) 0955 Bedside IVC sono: IVC measures (cm) (0.65), Profound dehydration (est 3 liter deficit) PD MEDICAL DECISION MAKING - ED course Complexity details: reviewed old records, reviewed results, re-evaluated patient, considered differential, d/w patient ED course: 70-year-old male with acute lumbar pain radiating down his right leg appears to have sciatica. Is administered Toradol and dexamethasone as well as fluid in the form of an IV banana bag. The patient does drink heavily and appears dehydrated.The patient had marked improvement in his level of discomfort with treatment. Departure - Departure Disposition: 01 Home, Self Care Clinical Impression: Dehydration determined by examination Sciatica Qualifiers: Laterality: right Qualified Code(s): M54.31 - Sciatica, right side Condition: Stable Instructions: ED Dehydration, ED Sciatica Follow-Up: Samina Peterson ARNP [Primary Care Provider] - Prescriptions: Cyclobenzaprine [Flexeril] 10 mg PO TID PRN #20 tablet PRN Reason: Spasms HYDROcod/ACETAM 5/325 [[place] 5/325] 1 - 2 tablet PO Q6H PRN #14 tablet PRN Reason: Pain Discharge Date/Time: 03/04/21 13:00
[2021-03-04 10:08] LABS: BASOPHILS # (AUTO) 0.1 10^3/uL (0.0-0.1); BASOPHILS % (AUTO) 0.8 %; EOSINOPHILS # (AUTO) 0.1 10^3/uL (0.0-0.7); EOSINOPHILS % (AUTO) 1.9 %; HCT - HEMATOCRIT 49.1 % (42.0-52.0); HGB - HEMOGLOBIN 16.9 g/dL (14.0-18.0); LYMPHOCYTES # (AUTO) 0.8 10^3/uL (1.5-3.5); LYMPHOCYTES % (AUTO) 13.6 %; MEAN CORPUSCULAR HEMOGLOBIN 38.6 pg (27.0-31.0); MEAN CORPUSCULAR HGB CONC 34.4 g/dL (32.0-36.0); MEAN CORPUSCULAR VOLUME 112.1 fL (80.0-94.0); MEAN PLATELET VOLUME 9.2 fL (7.4-11.4); MONOCYTES # (AUTO) 0.5 10^3/uL (0.0-1.0); MONOCYTES % (AUTO) 8.1 %; NEUTROPHILS # (AUTO) 4.7 10^3/uL (1.5-6.6); NEUTROPHILS % (AUTO) 75.1 %; PLT - PLATELET COUNT 155 10^3/uL (130-450); RED BLOOD COUNT 4.38 10^6/uL (4.70-6.10); RED CELL DISTRIBUTION WIDTH 12.4 % (12.0-15.0); WHITE BLOOD COUNT 6.2 x10^3/uL (4.8-10.8)
[2021-03-04 10:20] LABS: SLIDE REVIEW? Indicated
[2021-03-04 10:24] LABS: ALBUMIN 3.8 g/dL (3.2-5.5); ALKALINE PHOSPHATASE 78 IU/L (42-121); ALT ALANINE AMINOTRANSFERASE 86 IU/L (10-60); AST ASPARTATE AMINOTRANSFERASE 98 IU/L (10-42); BILIRUBIN,TOTAL 1.1 mg/dL (0.2-1.0); BUN - BLOOD UREA NITROGEN 14 mg/dL (6-20); CARBON DIOXIDE - CO2 27 mmol/L (21-32); CHLORIDE 99 mmol/L (101-111); CREATININE 0.9 mg/dL (0.6-1.2); ETOH - ETHANOL < 5.0 mg/dL; GFR - MDRD 83 (>89); GLUCOSE 127 mg/dL (70-100); LIPASE 74 U/L (22-51); POTASSIUM 3.8 mmol/L (3.5-5.0); SODIUM 136 mmol/L (135-145); TOTAL PROTEIN 7.5 g/dL (6.7-8.2)
[2021-03-04 10:43] LABS: PLATELET ESTIMATE, MANUAL NORMAL (130-450,000) (NORMAL); PLATELET MORPHOLOGY NORMAL APPEARANCE (NORMAL); RBC MORPHOLOGY (MULTIPLE) 1+ MACROCYTOSIS (NORMAL)
[2021-03-04 12:38] VITALS: BP 165/89
== END 2021-03-04 13:00 | disposition home or self-care (01) ==
LOC: EDUNIT# → ED 09:35
DX: M54.31 Sciatica, right side (principal); E86.0 Dehydration; I10 Essential (primary) hypertension
CPT/HCPCS: 36415; 80053; 83690; 85025; 96365; 96375; 99284; G0480; J3411; 80320

== ENCOUNTER 2021-05-28 13:46 | Outpatient (CLI) | payer MEDICARE, OTHER | END 2021-05-28 13:47 | disposition critical access hospital (66) | LOC: EMS 13:46 | DX: R07.9 Chest pain, unspecified (principal) | CPT/HCPCS: A0425; A0429 ==

== ENCOUNTER 2021-05-28 14:06 | Emergency (ER) | payer MEDICARE, OTHER ==
[2021-05-28] MEDS ORDERED: LORazepam 2 MG/ML VIAL IVP STA (14:24)
--- NOTE | 2021-05-28 14:24 | ED Physician Documentation ---
PD HPI CHEST PAIN - Stated complaint Stated Complaint: R LOWER RIB PX - Chief complaint Chief Complaint: Abd Pain - History obtained from History obtained from: Patient, EMS - Additional information Additional information: 71-year-old gentleman with history of obesity and sleep apnea. No other heart or lung problems. Monday night, 4 nights ago he woke in the middle of the night with severe pleuritic chest pain, very bad if he took a deep breath. This continues. He went to see his doctor 2 days ago. He has a lot of orthopnea and a lot of anxiety if he lays flat. Because of this they could not complete an EKG. He was advised to come to the hospital for evaluation but decided not to because the roads were bad. Continues to have this bad pain and is unable to take his dog "Laura" a border [employer] lab mix outside. He cannot lay flat. Because he cannot lay flat he has a crick in his neck from sleeping upright. Denies pedal edema or calf pain. No trauma. Took a home Covid test last night and was negative. Review of Systems Ten Systems: 10 systems reviewed and negative Constitutional: denies: Fever, Chills Cardiac: reports: Chest pain / pressure. denies: Palpitations Respiratory: reports: Dyspnea. denies: Cough GI: denies: Abdominal Pain, Nausea, Vomiting, Diarrhea PD PAST MEDICAL HISTORY - Past Medical History Cardiovascular: Hypertension, Other Respiratory: Sleep apnea, CPAP use Endocrine/Autoimmune: None GI: Colon polyps : None HEENT: Chronic vision loss Psych: Claustrophobia Musculoskeletal: Osteoarthritis, Gout, Chronic back pain Derm: None - Past Surgical History Past Surgical History: Yes General: Colonoscopy Ortho: Hip replacement, Rotator cuff repair, Other Derm: Skin cancer surgery - Present Medications Home Medications: Ambulatory Orders Medication Instructions Recorded Confirmed Cholecalciferol [Vitamin D3] 1 DAILY 04/16/19 Colchicine 1 DAILY 04/16/19 Multivit-Min/Ferrous Sulfate 1 DAILY 04/16/19 [Multilex Tablet] Potassium &Magnesium Aspartate [Ra 1 DAILY 04/16/19 Potassium-Magnesium Asp 250] Propranolol HCl 1 BID 04/16/19 allopurinoL [Allopurinol] 1 DAILY 04/16/19 buPROPion [Wellbutrin Sr] 1 BID 04/16/19 methocarbamoL [Robaxin-750] 750 mg PO TID PRN #30 tablet 10/20/20 Cyclobenzaprine [Flexeril] 10 mg PO TID PRN #20 tablet 03/04/21 HYDROcod/ACETAM 5/325 [[place] 5/325] 1 - 2 tablet PO Q6H PRN #14 tablet 03/04/21 Oxycodone HCl/Acetaminophen 1 - 2 each PO Q6H PRN #14 tablet 05/28/21 [Percocet 5-325 mg Tablet] Rivaroxaban [Xarelto] 15 mg PO BID #42 tablet 05/28/21 Rivaroxaban [Xarelto] 20 mg PO DAILY #30 tablet 05/28/21 - Allergies Allergies/Adverse Reactions: Allergies Allergy/AdvReac Type Severity Reaction Status Date / Time No Known Drug Allergies Allergy Verified 05/28/21 14:08 - Social History Does the pt smoke?: No Smoking Status: Never smoker Does the pt drink ETOH?: Yes Does the pt have substance abuse?: No - Immunizations Immunizations are current?: Yes Immunizations: TDAP current <10years, Other immun current - POLST Patient has POLST: No PD ED PE NORMAL - Vitals Vital signs reviewed: Yes - General General: Alert and oriented X 3, Other (winces with deep breathing, anxious) - HEENT HEENT: PERRL, EOMI - Neck Neck: Supple, no meningeal sign, No bony TTP - Cardiac Cardiac: RRR, No murmur - Respiratory Respiratory: No respiratory distress, Clear bilaterally - Abdomen Abdomen: Normal bowel sounds, Soft, Non tender - Back Back: No CVA TTP, No spinal TTP - Derm Derm: Normal color, Warm and dry - Extremities Extremities: No edema, No calf tenderness / cord - Neuro Neuro: Alert and oriented X 3, No motor deficit, No sensory deficit, Normal speech Eye Opening: Spontaneous Motor: Obeys Commands Verbal: Oriented GCS Score: 15 - Psych Psych: Normal mood, Normal affect Results - Vitals Vitals: Vital Signs - 24 hr 05/28/21 05/28/21 05/28/21 14:08 14:53 15:35 Temperature 36.5 C 36.7 C Heart Rate 88 88 90 Respiratory 20 19 19 Rate Blood Pressure 143/104 H 149/86 H 154/92 H O2 Saturation 96 98 95 05/28/21 16:48 Temperature Heart Rate 94 Respiratory 18 Rate Blood Pressure 170/100 H O2 Saturation 96 Oxygen O2 Source Room air - EKG (time done) 1444 Rate: Rate (enter#) (79) Rhythm: NSR [place]: Normal Intervals: Normal MT QRS: Normal Ischemia: Normal ST segments - Labs Labs: Laboratory Tests 05/28/21 05/28/21 05/28/21 14:23 14:30 14:30 WBC 12.1 H RBC 4.20 L Hgb 15.4 Hct 45.5 MCV 108.3 H MCH 36.7 H MCHC 33.8 RDW 12.7 Plt Count 251 MPV 9.1 Neut # (Auto) 9.3 H Lymph # (Auto) 1.3 L Howard # (Auto) 1.2 H Eos # (Auto) 0.1 Baso # (Auto) 0.0 Absolute Nucleated RBC 0.00 Nucleated RBC % 0.0 Sodium 133 L Potassium 3.8 Chloride 96 L Carbon Dioxide 27 Anion Gap 10.0 BUN 17 Creatinine 0.8 Estimated GFR (MDRD) 95 Glucose 126 H Calcium 9.1 Total Bilirubin 1.1 H AST 35 ALT 33 Alkaline Phosphatase 68 Troponin I High Sens 7.0 B-Natriuretic Peptide Total Protein 8.2 Albumin 3.2 Globulin 5.0 H Albumin/Globulin Ratio 0.6 L Lipase 25 05/28/21 14:30 WBC RBC Hgb Hct MCV MCH MCHC RDW Plt Count MPV Neut # (Auto) Lymph # (Auto) Howard # (Auto) Eos # (Auto) Baso # (Auto) Absolute Nucleated RBC Nucleated RBC % Sodium Potassium Chloride Carbon Dioxide Anion Gap BUN Creatinine Estimated GFR (MDRD) Glucose Calcium Total Bilirubin AST ALT Alkaline Phosphatase Troponin I High Sens B-Natriuretic Peptide 41 Total Protein Albumin Globulin Albumin/Globulin Ratio Lipase PD MEDICAL DECISION MAKING - ED course ED course: 71-year-old gentleman with sleep apnea presents with orthopnea and severe lower pleuritic chest pain with deep breathing. Differential diagnosis includes PE, coronary syndrome is less likely given the description and timeframe, its been going on for about 5 days. Discussed plan to do an EKG and CT. He says he cannot tolerate CT due to anxiety and I offered IV Ativan pretreatment which she was appreciative for but still is pessimistic about us being able to complete the procedure. States he does need to go home tonight to take care of Laura as he lives alone with his dog. 78-year-old gentleman has had 5 days of severe pleuritic chest pain that makes him wince. He is found to have extensive pulmonary emboli with a trace of right heart strain. I offered him an observation stay for initiation of anticoagulation, observation and echocardiography. He declined, would like to be home with his dog. Took call from pharmacist, Xarelto and Eliquis are not well covered by his insurance. I authorized her to change to Lovenox 120 mg subcu twice daily for 5 days followed by Pradaxa 150 mg p.o. twice daily for a month. Departure - Departure Disposition: Home, Self Care Clinical Impression: Pulmonary embolism Qualifiers: Pulmonary embolism type: multiple subsegmental (without acute cor pulmonale) Qualified Code(s): I26.94 - Multiple subsegmental pulmonary emboli without acute cor pulmonale Condition: Good Record reviewed to determine appropriate education?: Yes Instructions: Embolism Pulmonary Dc Prescriptions: Oxycodone HCl/Acetaminophen [Percocet 5-325 mg Tablet] 1 - 2 each PO Q6H PRN #14 tablet PRN Reason: pain Rivaroxaban [Xarelto] 15 mg PO BID #42 tablet Rivaroxaban [Xarelto] 20 mg PO DAILY #30 tablet Comments: Your prescription was sent electronically to [facility] in [place]. As discussed we found you to have blood clots in your lungs today, return if worsening. Follow-up with your doctor, next available appointment. They will need to refill your blood thinners and decide how long you should be on them. Also for consideration for referral for hematology consultation as it is unclear why this happened. I am prescribing a short course of narcotic pain medication for you. These are potentially dangerous and addictive medications that should be used carefully. These medications may constipate you. Take an rpjy-ebm-iqykleg stool softener (docusate) twice daily with plenty of water while taking these medications. If you go 24 hours without a bowel movement, take yzsi-cea-wigtcuz miralax, per package instructions. Do not drink or drive while taking these medications. If you received narcotic or sedating medications while in the emergency department, do not drive for 24 hours. Store this medication in a safe, secure place and out of reach of children. It is a violation of federal law to give or sell this medication to another person or to use in a manner other than prescribed. The ED will not refill narcotic prescriptions, including prescriptions lost or stolen. To dispose of unwanted medications: 1. [facility] at [address] in [place] has a medication drop box. They accept prescription medications (in pill form) Monday through Monday 9:00 a.m. to 5:00 p.m. 2. [facility] accepts prescription medications (in pill form only) for disposal year round. Call for more information. 3. Contact the [facility] for the next [facility] sponsored prescription drug collection event. , [phone], or [phone]; Note that many narcotic pain relievers also contain Tylenol/acetaminophen. Please ensure that your total dose of acetaminophen from all sources does not exceed 3 g (3000 mg) per day. Discharge Date/Time: 05/28/21 16:58
[2021-05-28] MEDS ORDERED: iohexoL-300 100 ML VIAL ONE (14:34)
[2021-05-28 14:39] LABS: BASOPHILS % (AUTO) 0.3 %; EOSINOPHILS # (AUTO) 0.1 10^3/uL (0.0-0.7); EOSINOPHILS % (AUTO) 0.8 %; HCT - HEMATOCRIT 45.5 % (42.0-52.0); HGB - HEMOGLOBIN 15.4 g/dL (14.0-18.0); LYMPHOCYTES # (AUTO) 1.3 10^3/uL (1.5-3.5); LYMPHOCYTES % (AUTO) 10.8 %; MEAN CORPUSCULAR HEMOGLOBIN 36.7 pg (27.0-31.0); MEAN CORPUSCULAR HGB CONC 33.8 g/dL (32.0-36.0); MEAN CORPUSCULAR VOLUME 108.3 fL (80.0-94.0); MEAN PLATELET VOLUME 9.1 fL (7.4-11.4); MONOCYTES # (AUTO) 1.2 10^3/uL (0.0-1.0); MONOCYTES % (AUTO) 10.3 %; NEUTROPHILS # (AUTO) 9.3 10^3/uL (1.5-6.6); PLT - PLATELET COUNT 251 10^3/uL (130-450); RED CELL DISTRIBUTION WIDTH 12.7 % (12.0-15.0); WHITE BLOOD COUNT 12.1 x10^3/uL (4.8-10.8)
[2021-05-28 14:56] LABS: ALBUMIN 3.2 g/dL (3.2-5.5); ALBUMIN/GLOBULIN RATIO 0.6 (1.0-2.2); BILIRUBIN,TOTAL 1.1 mg/dL (0.2-1.0); CALCIUM 9.1 mg/dL (8.5-10.3); CREATININE 0.8 mg/dL (0.6-1.2); POTASSIUM 3.8 mmol/L (3.5-5.0); TOTAL PROTEIN 8.2 g/dL (6.7-8.2)
[2021-05-28] MEDS ORDERED: iohexoL-300 100 ML VIAL IVP ONE (15:38)
--- NOTE | 2021-05-28 15:55 | CT Report ---
PROCEDURE: ANGIO CHEST W/WO INDICATIONS: dyspnea, pe protocol CONTRAST: IV CONTRAST: Isovue 300 ml: 80 PO CONTRAST: *NO PO CONTRAST TECHNIQUE: After the administration of intravenous contrast, 2 mm axial images were acquired from the pulmonary apices to the posterior costophrenic angles during the arterial phase. In addition, 1 mm lung kernel and 5 mm soft tissue kernel reconstructions were performed. 3-dimensional coronal oblique maximum int ensity projection (MIP) reformats, 8 mm axial MIP, and 5 mm coronal and sagittal MPR reformats were t hen performed through the thorax. For radiation dose reduction, the following was used: automated exp osure control, adjustment of mA and/or kV according to patient size. COMPARISON: None. FINDINGS: Image quality: Motion artifact is noted. Pulmonary arteries: Extensive right-sided pulmonary embolism can be seen, with proximal pulmonary emb mando involving the right upper lobe and right middle lobe as well as the right lower lobe pulmonary ar teries. Potential involvement of the left lower lobe is also seen, although this is not definitive, g iven the motion artifact. Lungs and pleura: There is a small right-sided pleural effusion, with poorly defined opacity at the r ight lung base. Central and peripheral airways are patent. Mediastinum: There is mild prominence of the right heart. There is no pericardial effusion. Moderate coronary artery calcification is seen. No mediastinal or hilar adenopathy. Thoracic aorta is normal in caliber and enhancement. Esophagus is normal in caliber, without hiatal hernia. Bones and chest wall: No suspicious bony lesions. Ribs and thoracic spine appear intact throughout. Age-appropriate degenerative changes are seen. No axillary or supraclavicular adenopathy. The thy roid is normal in size and there are no incidental findings. Abdomen: Visualized upper abdominal solid organs appear normal in the early arterial phase of enhanc ement. IMPRESSION: Extensive right lung pulmonary emboli involving the proximal right upper lobe, right middle lobe, rig ht lower lobe pulmonary arteries. Potential involvement of the left lower lobe is also seen. Likely trace right heart strain. There is a small right-sided pleural effusion. Poorly defined opacity is seen at the right lung base, which has the appearance of infiltrate, although differential diagnosis includes atelectasis. Incidental note is made of: Moderate coronary artery calcification Note: Case discussed by telephone with Dr. Interiano at 2:51 PM [place] time on 05/28/2021. Reviewed by: Hernán Whitmore MD on 05/28/2021 2:53 PM [place] Approved by: Hernán Whitmore MD on 05/28/2021 2:53 PM [facility] Station ID: [id number]
[2021-05-28] MEDS ORDERED: HYDROmorphone 1 MG/ML CARPUJECT IVP STA (16:01)
[2021-05-28] MEDS ORDERED: ENOXAPARIN 120 MG/0.8 ML SYRINGE SUBQ STA (16:08)
[2021-05-28 16:51] VITALS: BP 170/100
== END 2021-05-28 16:58 | disposition home or self-care (01) ==
LOC: ED 14:06
DX: I26.94 Multiple subsegmental thrombotic pulmonary emboli without acute cor pulmonale (principal); Z79.01 Long term (current) use of anticoagulants; I10 Essential (primary) hypertension; G47.33 Obstructive sleep apnea (adult) (pediatric)
CPT/HCPCS: 36415; 80053; 83690; 83880; 84484; 85025; 93005; 96374; 96375; 99285

== ENCOUNTER 2021-05-28 21:16 | Outpatient (CLI) | payer MEDICARE, OTHER | END 2021-05-28 21:17 | disposition critical access hospital (66) | LOC: EMS 21:16 | DX: I26.99 Other pulmonary embolism without acute cor pulmonale (principal) | CPT/HCPCS: A0425; A0429 ==

== ENCOUNTER 2021-05-28 21:34 | Inpatient (IN) | payer MEDICARE, OTHER ==
[2021-05-28] MEDS ORDERED: HYDROmorphone 1 MG/ML CARPUJECT IVP STA (21:41)
--- NOTE | 2021-05-28 21:44 | ED Physician Documentation ---
History of Present Illness - Stated complaint Stated Complaint: SOA - History obtained from History obtained from: Patient - Additonal information Additional information: 71-year-old gentleman earlier in the day for pleuritic chest pain and was found to have pulmonary embolism with trace of right heart strain but negative biomarkers, BNP and troponin. He was offered observation, but preferred to go home to be with his dog. He got home, there was a problem at the pharmacy, see my prior note but briefly we had to change his prescription to Lovenox and Pradaxa because of insurance coverage. Between all of everything going on at the pharmacy and then going home he was unable to fill his medications. He got very anxious and was much more short of breath, potentially due to anxiety and returns requesting admission overnight and for pain control because his pain is still severe. Review of Systems Ten Systems: 10 systems reviewed and negative Cardiac: reports: Chest pain / pressure Respiratory: reports: Dyspnea PD PAST MEDICAL HISTORY - Past Medical History Cardiovascular: Hypertension, Other Respiratory: Sleep apnea, CPAP use Endocrine/Autoimmune: None GI: Colon polyps : None HEENT: Chronic vision loss Psych: Claustrophobia Musculoskeletal: Osteoarthritis, Gout, Chronic back pain Derm: None - Past Surgical History Past Surgical History: Yes General: Colonoscopy Ortho: Hip replacement, Rotator cuff repair, Other Derm: Skin cancer surgery - Present Medications Home Medications: Ambulatory Orders Medication Instructions Recorded Confirmed Cholecalciferol [Vitamin D3] 1 DAILY 04/16/19 Colchicine 1 DAILY 04/16/19 Multivit-Min/Ferrous Sulfate 1 DAILY 04/16/19 [Multilex Tablet] Potassium &Magnesium Aspartate [Ra 1 DAILY 04/16/19 Potassium-Magnesium Asp 250] Propranolol HCl 1 BID 04/16/19 allopurinoL [Allopurinol] 1 DAILY 04/16/19 buPROPion [Wellbutrin Sr] 1 BID 04/16/19 methocarbamoL [Robaxin-750] 750 mg PO TID PRN #30 tablet 10/20/20 Cyclobenzaprine [Flexeril] 10 mg PO TID PRN #20 tablet 03/04/21 HYDROcod/ACETAM 5/325 [[place] 5/325] 1 - 2 tablet PO Q6H PRN #14 tablet 03/04/21 Oxycodone HCl/Acetaminophen 1 - 2 each PO Q6H PRN #14 tablet 05/28/21 [Percocet 5-325 mg Tablet] Rivaroxaban [Xarelto] 15 mg PO BID #42 tablet 05/28/21 Rivaroxaban [Xarelto] 20 mg PO DAILY #30 tablet 05/28/21 - Allergies Allergies/Adverse Reactions: Allergies Allergy/AdvReac Type Severity Reaction Status Date / Time No Known Drug Allergies Allergy Verified 05/28/21 21:45 - Social History Does the pt smoke?: No Smoking Status: Never smoker Does the pt drink ETOH?: Yes Does the pt have substance abuse?: No - Immunizations Immunizations are current?: Yes Immunizations: TDAP current <10years, Other immun current - POLST Patient has POLST: No PD ED PE NORMAL - Vitals Vital signs reviewed: Yes - General General: Alert and oriented X 3, Other (He appears uncomfortable, splints his breath with deep breathing. He is anxious.) - HEENT HEENT: PERRL, EOMI - Neck Neck: Supple, no meningeal sign, No bony TTP - Cardiac Cardiac: RRR, No murmur - Respiratory Respiratory: Other (Tachypneic and anxious, clear lungs) - Abdomen Abdomen: Normal bowel sounds, Soft, Non tender - Back Back: No CVA TTP, No spinal TTP - Derm Derm: Normal color, Warm and dry - Extremities Extremities: No deformity, No tenderness to palpate - Neuro Neuro: Alert and oriented X 3, Normal speech Results - Vitals Vitals: Vital Signs - 24 hr 05/28/21 21:42 Temperature 37.1 C Heart Rate 118 H Respiratory 26 H Rate Blood Pressure 159/97 H O2 Saturation 97 Oxygen O2 Source Room air PD MEDICAL DECISION MAKING - ED course ED course: 71 yo male with PESI 2 PE returns with pain and increased anxiety. Sat OK. Dr Garcia will obs. Departure - Departure Disposition: ED Place in Observation Clinical Impression: Pulmonary embolism Qualifiers: Pulmonary embolism type: multiple subsegmental (without acute cor pulmonale) Qualified Code(s): I26.94 - Multiple subsegmental pulmonary emboli without acute cor pulmonale Condition: Fair
[2021-05-28] MEDS ORDERED: ENOXAPARIN 120 MG/0.8 ML SYRINGE SUBQ ONE (22:00)
[2021-05-28] MEDS ORDERED: SODIUM CHLORIDE FLUSH 0.9% 10 ML SYRINGE IVP PRN (22:07)
[2021-05-28] MEDS ORDERED: ONDANSETRON 4 MG/2 ML VIAL IVP PRN (22:07)
[2021-05-28] MEDS ORDERED: HYDROmorphone 0.5 MG/0.5 ML SYRINGE IVP PRN (22:07)
--- NOTE | 2021-05-28 22:23 | HISTORY & PHYSICAL EXAMINATION ---
Chief Complaint - Chief Complaint Chief Complaint: pleuritic pain History of Present Illness - Admitted From Admitted From:: [facility] ED - History Obtained From Records Reviewed: yes History obtained from: patient - History of Present Illness HPI Comment/Other: Patient is a 71-year-old male who presented to the ED with pleuritic chest pain. His symptoms started 4 days ago on Monday when he started having difficulty taking deep breaths. This was associated with pain. He went to sleep and woke up in the middle of the night because he could not breathe. He saw his primary care physician the following day and was advised to go to the emergency department for a CT scanning of the chest. He deferred this today until today Monday when his dyspnea had gotten progressively worse. He called EMS in the morning. In the ED he had a CT angiogram of the chest from which was diagnosed with a PE. He was initially prescribed Xarelto however it seems his insurance did not cover it consequently he was prescribed Pradaxa. He was also prescribed Lovenox for 5 days. The patient has not yet picked up his medications from the pharmacy. He returned to the ED with intractable/severe pleuritic chest pain which is worse on the right side. At bedside his pain is quite significant. He appears very uncomfortable. He also reported abdominal pain but denied nausea, vomiting, fever or chills. He lives alone and normally gets around using a walker or walking on his own. History - Past Medical History Cardiovascular: reports: Hypertension, Other Respiratory: reports: Sleep apnea, CPAP use Neuro: reports: None Endocrine/Autoimmune: reports: None GI: reports: Colon polyps : reports: None HEENT: reports: Chronic vision loss Psych: reports: Depression, Claustrophobia Musculoskeletal: reports: Osteoarthritis, Gout, Chronic back pain Derm: reports: None MRSA Hx?: No - Past Surgical History General: reports: Colonoscopy Ortho: reports: Hip replacement, Rotator cuff repair, Other Derm: reports: Skin cancer surgery - Family & Social History Family History Comment/Other: The patient's sister has atrial fibrillation. His brother recently . He had end-stage renal disease on hemodialysis. He was also diabetic. Social History Notes: He lives alone. He does not use tobacco products. He drinks 2 glasses of wine at night daily. He occasionally uses marijuana products. - POLST Patient has POLST: No POLST Status: Full Code Meds/Allgy - Home Medications Home Medications: Ambulatory Orders Medication Instructions Recorded Confirmed Cholecalciferol [Vitamin D3] 1 DAILY 04/16/19 Colchicine 1 DAILY 04/16/19 Multivit-Min/Ferrous Sulfate 1 DAILY 04/16/19 [Multilex Tablet] Potassium &Magnesium Aspartate [Ra 1 DAILY 04/16/19 Potassium-Magnesium Asp 250] Propranolol HCl 1 BID 04/16/19 allopurinoL [Allopurinol] 1 DAILY 04/16/19 buPROPion [Wellbutrin Sr] 1 BID 04/16/19 methocarbamoL [Robaxin-750] 750 mg PO TID PRN #30 tablet 10/20/20 Cyclobenzaprine [Flexeril] 10 mg PO TID PRN #20 tablet 03/04/21 HYDROcod/ACETAM 5/325 [[place] 5/325] 1 - 2 tablet PO Q6H PRN #14 tablet 03/04/21 Oxycodone HCl/Acetaminophen 1 - 2 each PO Q6H PRN #14 tablet 05/28/21 [Percocet 5-325 mg Tablet] Rivaroxaban [Xarelto] 15 mg PO BID #42 tablet 05/28/21 Rivaroxaban [Xarelto] 20 mg PO DAILY #30 tablet 05/28/21 - Allergies Allergies/Adverse Reactions: Allergies Allergy/AdvReac Type Severity Reaction Status Date / Time No Known Drug Allergies Allergy Verified 05/28/21 21:45 Review of Systems - Constitutional Constitutional: denies: Fatigue, Fever, Chills - Eyes Eyes: denies: Pain, Vision loss - Ears, Nose & Throat Ears, Nose & Throat: denies: Ear pain, Sore throat - Cardiovascular Cariovascular: denies: Irregular heart rate, Palpitations, Chest pain, Lightheadedness, Syncope - Respiratory Respiratory: reports: Pleuritic pain. denies: Cough, Wheezing, SOB at rest, SOB with exertion - Gastrointestinal Gastrointestinal: denies: Abdominal pain, Abdominal distention, Constipation, Diarrhea, Nausea, Vomiting, Coffee grounds emesis, Reflux/heartburn - Genitourinary Genitourinary: denies: Dysuria, Frequency, Urgency, Hematuria - Musculoskeletal Musculoskeletal: denies: Muscle pain, Back pain, Muscle aches, Stiffness - Integumentary Integumentary: denies: Rash, Pruritis, Lesions, Dryness - Neurological Neurological: denies: General weakness, Focal weakness, Headache, Dizziness - Psychiatric Psychiatric: reports: Depression. denies: Anxiety - Endocrine Endocrine: denies: Polyuria, Polydypsia - Hematologic/Lymphatic Hematologic/Lymphatic: denies: Anemia, Bruising Prior Level of Functionality: Patient is normally independent of activities of daily living. Exam - Vital Signs Vital Signs: Vital Signs x48h Temp Pulse Resp BP Pulse Ox 05/28/21 21:42 37.1 C 118 H 26 H 159/97 H 97 - Physical Exam General Appearance: positive: Alert, Moderate distress, Severe distress Eyes Bilateral: positive: PERRL, EOMI ENT: positive: No signs of dehydration Neck: positive: No JVD, Trachea midline Respiratory: positive: Breath sounds nml, Other (Pleuritic chest pain) Cardiovascular: positive: No murmur, Tachycardia Abdomen: positive: Non-tender, No organomegaly, Nml bowel sounds, No distention. negative: Guarding, Rebound Back: positive: Nml inspection Skin: positive: Color nml, No rash, Warm, Dry Extremities: positive: Non-tender, Full ROM, Nml appearance, No pedal edema Neurologic/Psychiatric: positive: Oriented x3, Mood/affect nml Conclusion/Plan - Problem List (1) Pleuritic chest pain Conclusion/Plan: Secondary to recently diagnosed pulmonary embolism. Pain management with Dilaudid, Dewar and or Tylenol as needed. Supplemental oxygen as needed. (2) Pulmonary embolism Conclusion/Plan: Lovenox 115 mg subcu twice daily ordered. Patient is expected to take days for 5 days. He has a prescription which has been sent to his pharmacy by Dr. Horowitz in the ED. He is yet to package pick up the prescription. He also had Pradaxa prescribed. Qualifiers: Pulmonary embolism type: multiple subsegmental (without acute cor pulmonale) Qualified Code(s): I26.94 - Multiple subsegmental pulmonary emboli without acute cor pulmonale (3) Obstructive sleep apnea on CPAP Conclusion/Plan: CPAP ordered nightly (4) Osteoarthritis Conclusion/Plan: Takes Robaxin at home. Dilaudid, Dewar and Tylenol ordered as needed. (5) Gout Conclusion/Plan: On allopurinol. (6) Depression Conclusion/Plan: On Wellbutrin (7) Hypertension Conclusion/Plan: On propanolol 20 mg p.o. twice daily. Core Measures - Anticipated LOS I expect patient to be DC'd or transferred within 96 hours.: Yes - DVT/VTE - Prophylaxis VTE/DVT Device ordered at admit?: Yes VTE/DVT Prophylaxis med ordered at admit?: Yes
[2021-05-28 23:01] LABS: B. PARAPERTUSSIS- RESP PCR PAN NOT DETECTED; B. PERTUSSIS- RESP PCR PANEL NOT DETECTED; C. PNEUMONIAE- RESP PCR PANEL NOT DETECTED; CORONAVIRUS 229E-RESP PCR NOT DETECTED; CORONAVIRUS HKU1-RESP PCR NOT DETECTED; CORONAVIRUS NL63-RESP PCR NOT DETECTED; CORONAVIRUS OC43-RESP PCR NOT DETECTED; HUMAN METAPNEUMOVIRUS NOT DETECTED; INFLUENZA A- RESP PCR PANEL NOT DETECTED; INFLUENZA B - RESP PCR PANEL NOT DETECTED; M. PNEUMONIAE- RESP PCR PANEL NOT DETECTED; PARAINFLUENZA VIRUS 1 NOT DETECTED; PARAINFLUENZA VIRUS 2 NOT DETECTED; PARAINFLUENZA VIRUS 3 NOT DETECTED; PARAINFLUENZA VIRUS 4 NOT DETECTED; RHINOVIRUS/ENTEROVIRUS NOT DETECTED; RSV- RESP PCR PANEL NOT DETECTED; SARS-CoV-2 -RESP PCR PANEL NOT DETECTED
[2021-05-29] MEDS: SODIUM CHLORIDE FLUSH 0.9% 10 ML SYRINGE IVP SCH ×3 (00:46→16:19)
[2021-05-29 05:42] LABS: BASOPHILS # (AUTO) 0.1 10^3/uL (0.0-0.1); BASOPHILS % (AUTO) 0.6 %; EOSINOPHILS # (AUTO) 0.1 10^3/uL (0.0-0.7); EOSINOPHILS % (AUTO) 0.7 %; HCT - HEMATOCRIT 42.5 % (42.0-52.0); HGB - HEMOGLOBIN 14.1 g/dL (14.0-18.0); LYMPHOCYTES # (AUTO) 1.8 10^3/uL (1.5-3.5); LYMPHOCYTES % (AUTO) 14.4 %; MEAN CORPUSCULAR HEMOGLOBIN 36.2 pg (27.0-31.0); MEAN CORPUSCULAR HGB CONC 33.2 g/dL (32.0-36.0); MEAN CORPUSCULAR VOLUME 109.3 fL (80.0-94.0); MEAN PLATELET VOLUME 9.4 fL (7.4-11.4); MONOCYTES # (AUTO) 1.1 10^3/uL (0.0-1.0); MONOCYTES % (AUTO) 9.4 %; NEUTROPHILS % (AUTO) 73.9 %; PLT - PLATELET COUNT 272 10^3/uL (130-450); RED BLOOD COUNT 3.89 10^6/uL (4.70-6.10); RED CELL DISTRIBUTION WIDTH 12.6 % (12.0-15.0); WHITE BLOOD COUNT 12.1 x10^3/uL (4.8-10.8)
[2021-05-29 05:49] LABS: CALCIUM 8.8 mg/dL (8.5-10.3); CREATININE 0.8 mg/dL (0.6-1.2); POTASSIUM 3.8 mmol/L (3.5-5.0)
[2021-05-29] MEDS: HYDROcod/ACETAM 5/325 MG TABLET PO PRN ×3 (07:32→21:03)
[2021-05-29] MEDS ORDERED: ENOXAPARIN 120 MG/0.8 ML SYRINGE SUBQ SCH (09:00)
[2021-05-29] MEDS ORDERED: HYDROmorphone 1 MG/ML CARPUJECT IVP PRN (10:36)
[2021-05-29] MEDS: SIMETHICONE CHEW 80 MG TABLET PO SCH ×5 (11:01→21:04)
--- NOTE | 2021-05-29 13:33 | PROVIDER PROGRESS NOTE ---
Subjective - Prog Note Date Prog Note Date: 05/29/21 - Subjective Pt reports feeling: No change Subjective: Slept approximately 4 hours overnight per his report. Continues to complain of significant pleuritic pain with intermittent dyspnea. Largely anxious throughout the day, concerned about discharging too soon. Hypoxic to 90% on room air this afternoon and requiring 1L NC. He does not use oxygen at home. Denies nausea, vomiting, fevers or chills. Objective - Vital Signs/Intake & Output Reviewed Vital Signs: Yes Vital Signs: Vital Signs x48h Temp Pulse Resp BP Pulse Ox 05/29/21 07:34 37.1 C 95 20 161/88 H 98 Intake & Output: Intake & Output 05/26/21 05/27/21 05/28/21 05/29/21 23:59 23:59 23:59 23:59 Intake Total 440 Balance 440 - Objective General Appearance: positive: Alert, Mild distress Eyes Bilateral: positive: Normal inspection ENT: positive: ENT inspection nml, No signs of dehydration Respiratory: positive: Breath sounds nml, Other (pleuritic chest pain, dyspnea) Cardiovascular: positive: Regular rate & rhythm Abdomen: positive: Non-tender, No organomegaly, Nml bowel sounds Skin: positive: Color nml Extremities: positive: Non-tender, Full ROM, Nml appearance Neurologic/Psychiatric: positive: Oriented x3 - Lab Results Fish Bones: 05/29/21 05:24 05/29/21 05:24 Other Labs: Lab Results x24hrs 05/29/21 05/29/21 05/28/21 Range/Units 05:24 05:24 22:10 WBC 12.1 H (4.8-10.8) x10^3/uL RBC 3.89 L (4.70-6.10) 10^6/uL Hgb 14.1 (14.0-18.0) g/dL Hct 42.5 (42.0-52.0) % MCV 109.3 H (80.0-94.0) fL MCH 36.2 H (27.0-31.0) pg MCHC 33.2 (32.0-36.0) g/dL RDW 12.6 (12.0-15.0) % Plt Count 272 (130-450) 10^3/uL MPV 9.4 (7.4-11.4) fL Neut # (Auto) 9.0 H (1.5-6.6) 10^3/uL Lymph # (Auto) 1.8 (1.5-3.5) 10^3/uL Morgan # (Auto) 1.1 H (0.0-1.0) 10^3/uL Eos # (Auto) 0.1 (0.0-0.7) 10^3/uL Baso # (Auto) 0.1 (0.0-0.1) 10^3/uL Absolute Nucleated RBC 0.00 x10^3/uL Nucleated RBC % 0.0 /100WBC Sodium 131 L (135-145) mmol/L Potassium 3.8 (3.5-5.0) mmol/L Chloride 95 L (101-111) mmol/L Carbon Dioxide 28 (21-32) mmol/L Anion Gap 8.0 (6-13) BUN 16 (6-20) mg/dL Creatinine 0.8 (0.6-1.2) mg/dL Estimated GFR (MDRD) 95 (>89) Glucose 150 H (70-100) mg/dL Calcium 8.8 (8.5-10.3) mg/dL Nasal Adenovirus (PCR) NOT DETECTED Nasal B. parapertussis DNA (PCR) NOT DETECTED Nasal Coronavir 229E PCR NOT DETECTED Nasal Coronavir HKU1 PCR NOT DETECTED Nasal Coronavir NL63 PCR NOT DETECTED Nasal Coronavir OC43 PCR NOT DETECTED Nasal Enterovir/Rhinovir PCR NOT DETECTED Nasal Influenza B PCR NOT DETECTED Nasal Influenza A PCR NOT DETECTED Nasal Parainfluen 1 PCR NOT DETECTED Nasal Parainfluen 2 PCR NOT DETECTED Nasal Parainfluen 3 PCR NOT DETECTED Nasal Parainfluen 4 PCR NOT DETECTED Nasal RSV (PCR) NOT DETECTED Nasal B.pertussis DNA PCR NOT DETECTED Nasal C.pneumoniae (PCR) NOT DETECTED Marlon Human Metapneumo PCR NOT DETECTED Nasal M.pneumoniae (PCR) NOT DETECTED Nasal SARS-CoV-2 (PCR) NOT DETECTED ABX Reporting Has patient been on IV antibiotics over the past 48 hours?: No Assessment/Plan - Problem List (1) Pulmonary embolism Impression: Stable. Pt initially was seen in the ED and prescribed Lovenox and Eliquis, however the Eliquis was not covered by insurance and a new presription for Pradaxa and Lovenox was sent to the pharmacy. Due to the holidays the prescription was not ready for him to grape picker in time before the store closed. He stayed home until the evening when his pleuritic pain, dyspnea and anxiety worsened. He returned to the ED requesting admission and he was initially admitted under observation status. Lovenox was continued. He continues to experience severe pleuritic pain requiring dilaudid and norco. His anxiety continues to be high, increased when talking about discharge planning. Unfortunately he now requires oxygen as he was noted to have an oxygen saturation of 90% on room air, up to 92% on 1L NC. He also has a mild WBC elevation of 12.2, which may be related to the PE but will still be rechecked tomorrow. He was transitioned to inpatient status for closer monitoring. -Lovenox 115mg subcutaneous BID -Will continue Pradaxa as well once discharged -Monitor oxygen, supplement as needed -Pain management for pleuritic pain Qualifiers: Pulmonary embolism type: multiple subsegmental (without acute cor pulmonale) Qualified Code(s): I26.94 - Multiple subsegmental pulmonary emboli without acute cor pulmonale (2) Pleuritic chest pain Impression: Secondary to PE. Pain management with dilaudid, norco and tylenol as needed. This morning and afternoon the pain has been intermittently significant, as he describes "spasms" that cause him to hold his breath and bend over in pain before then breathing short quick breaths before calming down. Required more dilaudid overnight but appears to have adequate pain control with the Medora this afternoon. -Continue pain meds prn for pleuritic pain as ordered (3) Hypoxia Impression: New oxygen requirement late this morning when he complained of dyspnea and was found to have an oxygen saturation of 90% on room air. He was wide awake and sitting up in a chair, this was not related to his BEE. Currently requiring 1L NC. -Continue to monitor O2 sats, supplement as needed -May require home O2 given hx of need for CPAP 2/2 BEE if unable to wean back to room air (4) Obstructive sleep apnea on CPAP Impression: Uses CPAP at home for BEE. His sister will be bringing in his machine from home for tonight. -Continue home CPAP at night for BEE (5) Osteoarthritis Impression: Stable. Takes Robaxin at home. Will continue his current hospital regimen with Dilaudid, Medora and Tylenol. Qualifiers: Osteoarthritis location: unspecified site (6) Gout Impression: Stable. Takes allopurinol at home. Will resume once med rec has been completed. Qualifiers: Gout site: unspecified site Chronicity: chronic (7) Depression Impression: Stable. Takes Wellbutrin at home. Will resume once med reconciliation has been completed as this may also help his anxiety. Qualifiers: Depression Type: unspecified Qualified Code(s): F32.A - Depression, unspecified (8) Hypertension Impression: On propanolol 20mg po BID. will resume home medications. Qualifiers: Hypertension type: primary hypertension Qualified Code(s): I10 - Essential (primary) hypertension (9) Anxiety Impression: Stable. Waxes and wanes but has remained consistently high today due to his dyspnea and pleuritic pain. Will plan to resume home dose of Wellbutrin though may need an additional SSRI to aid with this. (10) Leukocytosis, unspecified Impression: Stable. on admission noted to have WBC 12.1 with neutrophils of 9. Denies fevers, chills, nausea or cough. Lung sounds are clear and he has not complained of dysuria. Likely related to the PE but will plan to re-check the CBC in the morning. If remains high will consider a UA and blood cultures, sena st x-ray to rule out infectious causes. Qualifiers: Leukocytosis type: unspecified Qualified Code(s): D72.829 - Elevated white blood cell count, unspecified
[2021-05-29] MEDS: ACETAMINOPHEN 325 MG TABLET PO PRN (16:18)
[2021-05-29] MEDS ORDERED: COLCHICINE 0.6 MG TABLET PO PRN (17:46)
[2021-05-29] MEDS: GABAPENTIN 400 MG CAPSULE PO SCH ×2 (18:35→21:05)
[2021-05-29] MEDS: allopurinoL 100 MG TABLET PO SCH (21:03)
[2021-05-29] MEDS: ENOXAPARIN 120 MG/0.8 ML SYRINGE SUBQ SCH (21:06)
[2021-05-30] MEDS: methocarbamoL 500 MG TABLET PO PRN ×2 (01:14→17:11)
[2021-05-30] MEDS: SODIUM CHLORIDE FLUSH 0.9% 10 ML SYRINGE IVP SCH ×4 (01:16→23:52)
[2021-05-30 06:14] LABS: BASOPHILS # (AUTO) 0.1 10^3/uL (0.0-0.1); BASOPHILS % (AUTO) 0.6 %; EOSINOPHILS # (AUTO) 0.2 10^3/uL (0.0-0.7); EOSINOPHILS % (AUTO) 1.7 %; HCT - HEMATOCRIT 40.3 % (42.0-52.0); HGB - HEMOGLOBIN 13.6 g/dL (14.0-18.0); LYMPHOCYTES % (AUTO) 11.4 %; MEAN CORPUSCULAR HEMOGLOBIN 36.6 pg (27.0-31.0); MEAN CORPUSCULAR HGB CONC 33.7 g/dL (32.0-36.0); MEAN CORPUSCULAR VOLUME 108.3 fL (80.0-94.0); MEAN PLATELET VOLUME 9.6 fL (7.4-11.4); MONOCYTES % (AUTO) 10.9 %; NEUTROPHILS # (AUTO) 6.7 10^3/uL (1.5-6.6); NEUTROPHILS % (AUTO) 74.5 %; PLT - PLATELET COUNT 278 10^3/uL (130-450); RED BLOOD COUNT 3.72 10^6/uL (4.70-6.10); RED CELL DISTRIBUTION WIDTH 12.8 % (12.0-15.0)
[2021-05-30 06:22] LABS: CALCIUM 8.6 mg/dL (8.5-10.3); CREATININE 0.8 mg/dL (0.6-1.2); POTASSIUM 3.6 mmol/L (3.5-5.0)
[2021-05-30] MEDS: GABAPENTIN 400 MG CAPSULE PO SCH ×3 (06:42→21:53)
[2021-05-30] MEDS ORDERED: MELOXICAM 7.5 MG TABLET PO SCH (09:00)
[2021-05-30] MEDS ORDERED: NON FORMULARY MED (Allopurinol [Allopurinol] 300 MG Tablet) PO SCH (09:00)
[2021-05-30] MEDS: MULTIVITAMIN TABLET PO SCH (09:04)
[2021-05-30] MEDS: LOSARTAN 50 MG TABLET PO SCH (09:05)
[2021-05-30] MEDS: ENOXAPARIN 120 MG/0.8 ML SYRINGE SUBQ SCH ×2 (09:05→21:53)
[2021-05-30] MEDS: CHOLECALCIFEROL 25 MCG TABLET PO SCH (09:05)
[2021-05-30] MEDS: PROPRANOLOL ER 60 MG CAPSULE PO SCH (09:15)
--- NOTE | 2021-05-30 11:56 | Discharge Plan ---
Discharge Plan Problem Reviewed?: Yes Disposition: Home, Self Care Condition: Fair Diet: Regular Activity Restrictions: Activity as Tolerated Shower Restrictions: No Driving Restrictions: No Instruction Topics: Enoxaparin injection, Dabigatran oral capsules, Embolism Pulmonary Dc Plan of Treatment: As noted above Care Goals: Follow up with your PCP in the next 1-2 weeks for re-evaluation. Assessment: Pt is aware of the plan above and verbalized understanding. Additional Instructions or Follow Up instructions: As above. No Smoking: If you smoke, Please STOP! Call for help. Follow-up with: Provider,Other [Primary Care Provider] -
[2021-05-30] MEDS: SIMETHICONE CHEW 80 MG TABLET PO SCH ×3 (13:24→21:52)
[2021-05-30 13:43] LABS: ALBUMIN 2.8 g/dL (3.2-5.5); BILIRUBIN,DIRECT 0.2 mg/dL (0.1-0.5); BILIRUBIN,TOTAL 1.1 mg/dL (0.2-1.0); TOTAL PROTEIN 6.9 g/dL (6.7-8.2)
--- NOTE | 2021-05-30 14:36 | PROVIDER PROGRESS NOTE ---
Hospitalist Cross-cover Note - Cross-Cover Note Cross-Cover Note: I was asked to evaluate the patient with cardiac imaging (with a bedside Echo), to determine if he may have systolic heart failure, since he continues to complain of orthopnea as well as pleuritic chest pain when supine. As a board certified Chairman And Ceo, trained in Echo, I performed a semi-emergent, limited 2D only bedside Echo. This revealed: Normal LV size, normal wall thickness and overall normal LV contractility, EF 55%, mild septal flattening and intermittent paradoxical septal motion, moderately dilated RV with depressed RVEF, and a small pericardial effusion, seen mostly anteriorly (around the RV) and apically. There was Echogenic debris within the pericardial effusion. No signs of tamponade. I then personally reviewed the CT images that were done 05/28/21. That CT also showed the dilated RV and a probable trivial pericardial effusion. The pleural effusion is mild-moderate, R-sided only and layers out posteriorly, from apex to base of R lung. There is some irregular mass at the R lung base. There was an EKG done today that shows NSR, low voltage, no ST elevations. Imp: Pleuritic chest pain, persistent, and all of the following 3 Dx could be the cause: Multiple bilateral pulmonary emboli, unknown if provoked or unprovoked Small pericardial effusion Moderate R-sided pleural effusion In addition, he has abnormal finding at R lung base, and sleep apnea on CPAP, coronary calcification by CT chest, Hx of gout (not currently having a gouty attack). Plan: No discharge home today Obtain leg Dopplers, to R/O DVT (nb. he had R leg pain ER visit 2 mos ago) Obtain CXR, to evaluate pleural effusion size and lung parenchyma today Obtain a complete Echo (this is available tomorrow, today is Sun) Obtain an ESR Consider NSAID treatment vs steroids Contact Economics Teacher for further recommendations. This was discussed with my colleague, who is his Provider today. CRITICAL CARE TIME SPENT: 30 min
--- NOTE | 2021-05-30 14:38 | XRAY Report ---
PROCEDURE: Chest 1 View X-Ray INDICATIONS: pleural effusion TECHNIQUE: One view of the chest was acquired. COMPARISON: None FINDINGS: Surgical changes and devices: None. Lungs and pleura: Small right pleural effusion. No pneumothorax. Moderate patchy airspace opacity wi thin the right lung base. Mild patchy left lung base opacity. Mediastinum: Mediastinal contours appear normal. Heart size is normal. Bones and chest wall: No suspicious bony lesions. Overlying soft tissues appear unremarkable. IMPRESSION: Bibasilar pneumonia. Small right pleural effusion. Reviewed by: Salomon Smiley MD on 05/30/2021 2:36 PM PST Approved by: Salomon Smiley MD on 05/30/2021 2:[address] [facility] Station ID: [id number]
--- NOTE | 2021-05-30 14:59 | PROVIDER PROGRESS NOTE ---
Subjective - Prog Note Date Prog Note Date: 05/30/21 - Subjective Pt reports feeling: No change Subjective: Pt reports he slept better last night than he has on previous nights but continues to have intermittent spasms of chest pain. Notes that he continues to have difficulties when laying flat, with increased pain and anxiety. Has continued left side and back pain which is relieved with his PRN pain medications. Continues to also have neck pain from poor positioning while sleeping, requesting massage or muscle relaxer or lidocaine. Was initially due to discharge today, however given the continued pain and difficulties lying flat the decision was made to work him up further, see below for further details. Advanced Care Planning not done today as he requested to wait and look over the POLST form to discuss with his PCP and sister. Objective - Vital Signs/Intake & Output Reviewed Vital Signs: Yes Vital Signs: Vital Signs x48h Temp Pulse Pulse Resp BP BP Pulse Ox 05/30/21 13:00 36.8 C 75 18 87/54 L 91/50 L 98 05/30/21 12:43 115 H 05/30/21 08:14 36.9 C 92 20 144/81 H 94 Intake & Output: Intake & Output 05/27/21 05/28/21 05/29/21 05/30/21 23:59 23:59 23:59 23:59 Intake Total 1360 1400 Balance 1360 1400 - Objective General Appearance: positive: No acute distress, Alert, Other (Pt awake and alert, sitting up in his chair. No acute distress however continues to have anxiety and is anxious appearing.) Eyes Bilateral: positive: Normal inspection, PERRL ENT: positive: ENT inspection nml, No signs of dehydration Respiratory: positive: Breath sounds nml, Other (Pleuritic chest pain) Cardiovascular: positive: Regular rate & rhythm, No murmur Peripheral Pulses: 2+ Dorsalis pedis (R), 2+ Dorsalis pedis (L) Abdomen: positive: Non-tender, No organomegaly, Nml bowel sounds, No distention, Other Skin: positive: Color nml Extremities: positive: Full ROM, Nml appearance, No pedal edema Neurologic/Psychiatric: positive: Oriented x3 - Lab Results Fish Bones: 05/30/21 05:08 05/30/21 05:08 Other Labs: Lab Results x24hrs 05/30/21 05/30/21 05/30/21 Range/Units 13:43 05:08 05:08 WBC (4.8-10.8) x10^3/uL RBC (4.70-6.10) 10^6/uL Hgb (14.0-18.0) g/dL Hct (42.0-52.0) % MCV (80.0-94.0) fL MCH (27.0-31.0) pg MCHC (32.0-36.0) g/dL RDW (12.0-15.0) % Plt Count (130-450) 10^3/uL MPV (7.4-11.4) fL Neut # (Auto) (1.5-6.6) 10^3/uL Lymph # (Auto) (1.5-3.5) 10^3/uL Lynn # (Auto) (0.0-1.0) 10^3/uL Eos # (Auto) (0.0-0.7) 10^3/uL Baso # (Auto) (0.0-0.1) 10^3/uL Absolute Nucleated RBC x10^3/uL Nucleated RBC % /100WBC ESR 76 H (0-20) mm/Hr Sodium (135-145) mmol/L Potassium (3.5-5.0) mmol/L Chloride (101-111) mmol/L Carbon Dioxide (21-32) mmol/L Anion Gap (6-13) BUN (6-20) mg/dL Creatinine (0.6-1.2) mg/dL Estimated GFR (MDRD) (>89) Glucose (70-100) mg/dL Calcium (8.5-10.3) mg/dL Total Bilirubin 1.1 H (0.2-1.0) mg/dL Direct Bilirubin 0.2 (0.1-0.5) mg/dL AST 40 (10-42) IU/L ALT 39 (10-60) IU/L Alkaline Phosphatase 66 (42-121) IU/L Troponin I High Sens (2.3-19.7) ng/L B-Natriuretic Peptide 36 (5-100) pg/mL Total Protein 6.9 (6.7-8.2) g/dL Albumin 2.8 L (3.2-5.5) g/dL Globulin 4.1 (2.1-4.2) g/dL 05/30/21 05/30/21 05/30/21 Range/Units 05:08 05:08 05:08 WBC 9.0 (4.8-10.8) x10^3/uL RBC 3.72 L (4.70-6.10) 10^6/uL Hgb 13.6 L (14.0-18.0) g/dL Hct 40.3 L (42.0-52.0) % MCV 108.3 H (80.0-94.0) fL MCH 36.6 H (27.0-31.0) pg MCHC 33.7 (32.0-36.0) g/dL RDW 12.8 (12.0-15.0) % Plt Count 278 (130-450) 10^3/uL MPV 9.6 (7.4-11.4) fL Neut # (Auto) 6.7 H (1.5-6.6) 10^3/uL Lymph # (Auto) 1.0 L (1.5-3.5) 10^3/uL Lynn # (Auto) 1.0 (0.0-1.0) 10^3/uL Eos # (Auto) 0.2 (0.0-0.7) 10^3/uL Baso # (Auto) 0.1 (0.0-0.1) 10^3/uL Absolute Nucleated RBC 0.00 x10^3/uL Nucleated RBC % 0.0 /100WBC ESR (0-20) mm/Hr Sodium 131 L (135-145) mmol/L Potassium 3.6 (3.5-5.0) mmol/L Chloride 95 L (101-111) mmol/L Carbon Dioxide 26 (21-32) mmol/L Anion Gap 10.0 (6-13) BUN 12 (6-20) mg/dL Creatinine 0.8 (0.6-1.2) mg/dL Estimated GFR (MDRD) 95 (>89) Glucose 119 H (70-100) mg/dL Calcium 8.6 (8.5-10.3) mg/dL Total Bilirubin (0.2-1.0) mg/dL Direct Bilirubin (0.1-0.5) mg/dL AST (10-42) IU/L ALT (10-60) IU/L Alkaline Phosphatase (42-121) IU/L Troponin I High Sens 11.9 (2.3-19.7) ng/L B-Natriuretic Peptide (5-100) pg/mL Total Protein (6.7-8.2) g/dL Albumin (3.2-5.5) g/dL Globulin (2.1-4.2) g/dL - Diagnostic Imaging Diagnostic Imaging Results: positive: Final report reviewed, See rad report ABX Reporting Has patient been on IV antibiotics over the past 48 hours?: No Sepsis Event Note (H) - Evaluation Current Stage of Sepsis: Ruled out Assessment/Plan - Problem List (1) Pulmonary embolism Impression: Stable. Today he continues to reports pleuritic chest pain on the left and his back. His oxygen saturations have been in the mid 90s and he has not required oxygen supplementation since last evening. Continues to report pain and anxiety when attempting to lay supine in bed. Multiple tests were done (see problem list for pericarditis, pleural effusion, and DVT). [facility] was consulted via phone and they felt the pericarditis and pleural effusions he has also been diagnosed with may be related to his pulmonary embolisms. He will require anticoagulation for at least 6 months as well as an outpatient work up for his hypercoagulable state as it is not clear if these were provoked or non-provoked clots. He reports he was walking around his house and driving to and from appointments prior to admission, denying being sedentary for long periods of time. Pt initially was seen in the ED and prescribed Lovenox and Eliquis, however the Eliquis was not covered by insurance and a new presription for Pradaxa and Lovenox was sent to the pharmacy. Due to the holidays the prescription was not ready for him to grain picker in time before the store closed. He stayed home until the evening when his pleuritic pain, dyspnea and anxiety worsened. He returned to the ED requesting admission and he was initially admitted under observation status. He was transitioned to inpatient status 05/29 after an episode of hypoxia requiring oxygen supplementation. -Lovenox 115mg subcutaneous BID -Will continue Pradaxa as well once discharged -Monitor oxygen, supplement as needed -Pain management for pleuritic pain -Outpatient work up for hypercoagulable state Qualifiers: Pulmonary embolism type: multiple subsegmental (without acute cor pulmonale) Qualified Code(s): I26.94 - Multiple subsegmental pulmonary emboli without acute cor pulmonale (2) Pericarditis Impression: New diagnosis today. Due to continued report of pain with lying supine the decision was made to check an EKG, troponin, BNP, and echo. The EKG showed sinus rhythm with low voltage and no ST elevations, the BNP was 36 and the troponin was 11.9. As there were no Echo services available in house, my colleague, a board certified Shot Dropper, performed a bedside echo. ESR was 76 Per her report: This revealed: Normal LV size, normal wall thickness and overall normal LV contractility, EF 55%, mild septal flattening and intermittent paradoxical septal motion, moderately dilated RV with depressed RVEF, and a small pericardial effusion, seen mostly anteriorly (around the RV) and apically. There was Echogenic debris within the pericardial effusion. No signs of tamponade. Given the new sign of a possible pericarditis, in addition to pleural effusions, all findings were discussed with Pulmonology MD from [facility], who reviewed all images and felt the pericarditis and pleural effusions to be related to the pulmonary embolisms. She recommended continuing to treat with anticoagulation for the pulmonary embolisms and NSAIDs for the pericarditis. Plan: Complete Echo tomorrow ESR Monday Outpatient workup with PCP for hypercoagulable state Treat with NSAID Qualifiers: Pericarditis type: unspecified type Chronicity: unspecified Qualified Code(s): I31.9 - Disease of pericardium, unspecified (3) Pleural effusion Impression: Per CT on 05/28/21, Pt had a probable trivial pericardial effusion as well as a mild to moderate, right side only pleural effusion that latered out posteriorly from apex to base of the right lung, as well as irregular mass at the right lung base. Per discussion with the chain maker machine from [facility], this was too small to tap and anticoagulation treatment should be continued. She also felt this was sequelae from his pulmonary embolisms. Will plan to obtain a complete echo tomorrow and continue to treat his pain. (4) DVT (deep venous thrombosis) Impression: New diagnosis. Given his newly noted pleural and pericardial effusions in the setting of multiple pulmonary embolisms, the decision was made to obtain an ultrasound of his lower legs. Chart review reveals he was seen in the ED 2 months ago for right leg pain. At that time he reported he had been having lumb ar pain that radiated into the right calf for the last 6 months. He was felt to have sciatica and discharged home. The ultrasound today revealed an occlusive thrombus (DVT) of the right lower extremity (within the superficial femoral and popliteal veins). Lovenox BID was continued and he should have a work up outpatient for his hypercoagulability. -Lovenox BID continued -outpatient work up for hypercoagulability Qualifiers: DVT location: lower extremity Affected thrombotic vein of extremity: femoral Chronicity: unspecified Laterality: right Qualified Code(s): I82.411 - Acute embolism and thrombosis of right femoral vein (5) Pleuritic chest pain Impression: Stable. Likely related to a combination of the pulmonary embolisms, pulmonary effusion, and pericarditis. Will plan to continue to treat with NSAIDs and narcotics for the short term. These seem to be helping as he reports he has been able to sit comfortably in the chair today and briefly was able to lie down in bed. -Continue PRN pain meds as needed (6) Obstructive sleep apnea on CPAP Impression: Uses CPAP at home for BEE. His sister brought his machine from home. -Continue home CPAP at night for BEE (7) Osteoarthritis Impression: Stable. Takes Robaxin at home. Will continue his current hospital regimen with Dilaudid, Sims and Tylenol. Qualifiers: Osteoarthritis location: unspecified site Osteoarthritis type: unspecified Qualified Code(s): M19.90 - Unspecified osteoarthritis, unspecified site (8) Gout Impression: Stable. Takes allopurinol at home. Reports he has approximately 2-3 gout flares per year and thinks the last one was approximately 3 months ago and is not currently having symptoms. Home meds were continued. Qualifiers: Gout site: unspecified site Chronicity: chronic (9) Depression Impression: Stable. Having bouts of anxiety when trying to lay flat in the bed, otherwise denies psychiatric symptoms. He would benefit from continued follow up with his PCP. Qualifiers: Depression Type: unspecified Qualified Code(s): F32.A - Depression, unspecified (10) Hypertension Impression: Stable. Takes Propranolol HCL 20mg at home, started on a low dose extended release version yesterday for longer acting coverage given his BPs were 140- 150s. Today they have been lower, 90s-110s. Will continue to monitor. Qualifiers: Hypertension type: primary hypertension Qualified Code(s): I10 - Essential (primary) hypertension (11) Anxiety Impression: Stable. Waxes and wanes and appears to be related to positioning and his pleuritic pain. Improved today over yesterday though may benefit from use of an SSRI to aid. (12) Leukocytosis, unspecified Impression: Resolved. On admission was noted to have WBC 12 with neutrophils of 9. Today both have normalized and he does not have signs of a bacterial infection. Qualifiers: Leukocytosis type: unspecified Qualified Code(s): D72.829 - Elevated white blood cell count, unspecified (13) Hypoxia Impression: Resolved. Briefly required 2L NC for oxygen saturation of 90% yesterday, has since been satting in the mid 90s on room air. An ambulatory sat test was done by RT and he remained in the mid 90s.
--- NOTE | 2021-05-30 15:31 | Ultrasound Report ---
PROCEDURE: Duplex Ext Veins Bilateral INDICATIONS: Manisha Means TECHNIQUE: Real-time imaging, as well as color and pulse Doppler interrogation, were performed of the deep veins of both legs from the inguinal ligament to the popliteal fossa. COMPARISON: None FINDINGS: There is occlusive thrombus seen within the superficial femoral and popliteal veins. IMPRESSION: Right lower extremity DVT. Reviewed by: Salomon Smiley MD on 05/30/2021 3:30 PM PST Approved by: Salomon Smiley MD on 05/30/2021 3:30 PM PST Station ID: [id number]
[2021-05-30] MEDS ORDERED: LIDOCAINE PATCH 5% TOP PRN (17:07)
[2021-05-30] MEDS: ACETAMINOPHEN 325 MG TABLET PO PRN (17:10)
[2021-05-30] MEDS ORDERED: IBUPROFEN 400 MG TABLET PO STA (19:05)
[2021-05-30] MEDS: allopurinoL 100 MG TABLET PO SCH (21:53)
[2021-05-31] MEDS: GABAPENTIN 400 MG CAPSULE PO SCH ×3 (05:38→21:20)
[2021-05-31 06:16] LABS: BASOPHILS # (AUTO) 0.1 10^3/uL (0.0-0.1); BASOPHILS % (AUTO) 0.8 %; EOSINOPHILS # (AUTO) 0.2 10^3/uL (0.0-0.7); EOSINOPHILS % (AUTO) 2.8 %; HCT - HEMATOCRIT 41.4 % (42.0-52.0); HGB - HEMOGLOBIN 13.7 g/dL (14.0-18.0); LYMPHOCYTES # (AUTO) 0.8 10^3/uL (1.5-3.5); LYMPHOCYTES % (AUTO) 13.6 %; MEAN CORPUSCULAR HEMOGLOBIN 36.6 pg (27.0-31.0); MEAN CORPUSCULAR HGB CONC 33.1 g/dL (32.0-36.0); MEAN CORPUSCULAR VOLUME 110.7 fL (80.0-94.0); MEAN PLATELET VOLUME 9.5 fL (7.4-11.4); MONOCYTES # (AUTO) 0.8 10^3/uL (0.0-1.0); MONOCYTES % (AUTO) 13.1 %; NEUTROPHILS # (AUTO) 4.1 10^3/uL (1.5-6.6); PLT - PLATELET COUNT 289 10^3/uL (130-450); RED BLOOD COUNT 3.74 10^6/uL (4.70-6.10); RED CELL DISTRIBUTION WIDTH 12.9 % (12.0-15.0)
[2021-05-31 06:20] LABS: SLIDE REVIEW? Indicated
[2021-05-31 06:28] LABS: CALCIUM 8.8 mg/dL (8.5-10.3); CREATININE 0.9 mg/dL (0.6-1.2); POTASSIUM 3.6 mmol/L (3.5-5.0)
[2021-05-31 06:35] LABS: PLATELET MORPHOLOGY NORMAL APPEARANCE (NORMAL); RBC MORPHOLOGY (MULTIPLE) 1+ MACROCYTOSIS (NORMAL)
[2021-05-31 06:36] LABS: PLATELET ESTIMATE, MANUAL NORMAL (130-450,000) (NORMAL); WBC MORPHOLOGY (MULTIPLE) NORMAL APPEARANCE (NORMAL)
[2021-05-31] MEDS: IBUPROFEN 400 MG TABLET PO SCH ×3 (09:17→21:25)
[2021-05-31] MEDS: PROPRANOLOL ER 60 MG CAPSULE PO SCH (09:17)
[2021-05-31] MEDS: MULTIVITAMIN TABLET PO SCH (09:18)
[2021-05-31] MEDS: LOSARTAN 50 MG TABLET PO SCH (09:18)
[2021-05-31] MEDS: CHOLECALCIFEROL 25 MCG TABLET PO SCH (09:18)
[2021-05-31] MEDS: polyethylene glycoL 3350 17 GM PACKET PO SCH (09:18)
[2021-05-31] MEDS: DOCUSATE SODIUM 250 MG CAPSULE PO SCH (09:18)
[2021-05-31] MEDS: SIMETHICONE CHEW 80 MG TABLET PO SCH ×4 (09:18→21:24)
[2021-05-31] MEDS: ENOXAPARIN 120 MG/0.8 ML SYRINGE SUBQ SCH ×2 (09:33→21:21)
[2021-05-31] MEDS: SODIUM CHLORIDE FLUSH 0.9% 10 ML SYRINGE IVP SCH ×2 (15:55→21:25)
--- NOTE | 2021-05-31 21:14 | PROVIDER PROGRESS NOTE ---
Assessment/Plan - Problem List (1) Pulmonary embolism Qualifiers: Qualified Code(s): I26.94 - Multiple subsegmental pulmonary emboli without acute cor pulmonale Assessment/Plan: A HAND-WRITTEN PROGRESS NOTE WAS DONE SINCE [employer] WAS NOT WORKING - Current Meds Current Meds: Current Medications Generic Name Dose Route Start Last Admin Trade Name Freq PRN Reason Stop Dose Admin Acetaminophen 650 mg 05/28/21 22:07 05/30/21 17:10 Acetaminophen 325 Mg Tablet PO 650 mg Q4HR PRN Administration Pain 1 to 4 Hydrocodone Bitart/Acetaminophen 1 tab 05/28/21 22:07 05/29/21 21:03 Hydrocod/Acetam 5/325 Mg Tablet PO 1 tab Q4HR PRN Administration Pain 5 to 7 Allopurinol 100 mg 05/29/21 21:00 05/30/21 21:53 Allopurinol 100 Mg Tablet PO 100 mg QPM UZMA Administration Cholecalciferol 25 mcg 05/30/21 09:00 05/31/21 09:18 Cholecalciferol 25 Mcg Tablet PO 25 mcg DAILY UZMA Administration Docusate Sodium 250 - 500 mg 05/31/21 09:00 05/31/21 09:18 Docusate Sodium 250 Mg Capsule PO 250 mg DAILY UZMA Administration Enoxaparin Sodium 120 mg 05/29/21 15:35 05/31/21 09:33 Enoxaparin 120 Mg/0.8 Ml Syringe SUBQ 120 mg BID UZMA Administration Gabapentin 400 mg 05/29/21 18:00 05/31/21 15:55 Gabapentin 400 Mg Capsule PO Not Given TID UZMA Ibuprofen 400 mg 05/31/21 08:00 05/31/21 15:55 Ibuprofen 400 Mg Tablet PO Not Given TIDWM UZMA Lidocaine 1 patch 05/30/21 17:07 05/30/21 18:15 Lidocaine Patch 5% TOP 1 patch DAILY PRN Administration PAIN Losartan Potassium 50 mg 05/30/21 09:00 05/31/21 09:18 Losartan 50 Mg Tablet PO 50 mg DAILY UZMA Administration Methocarbamol 500 mg 05/29/21 17:46 05/30/21 17:11 Methocarbamol 500 Mg Tablet PO 500 mg TID PRN Administration Spasms Multivitamins 1 tab 05/30/21 08:00 05/31/21 09:18 Multivitamin Tablet PO 1 tab DAILYWM UZMA Administration Polyethylene Glycol 17 gm 05/31/21 09:00 05/31/21 09:18 Polyethylene Glycol 3350 17 Gm Packet PO 17 gm DAILY UZMA Administration Propranolol HCl 60 mg 05/30/21 09:00 05/31/21 09:17 Propranolol Er 60 Mg Capsule PO 60 mg DAILY UZMA Administration Simethicone 80 mg 05/29/21 11:00 05/31/21 15:55 Simethicone Chew 80 Mg Tablet PO Not Given 0900,1300,1800,2100 UZMA Sodium Chloride 10 ml 05/29/21 01:00 05/31/21 15:55 Sodium Chloride Flush 0.9% 10 Ml Syringe IVP Not Given 0100,0900,1700 UZMA - Lab Result Fish Bone Diagrams: 05/31/21 05:20 05/31/21 05:20 Objective Vital Signs: Vital Signs - 24 hr 05/30/21 05/31/21 05/31/21 23:50 03:59 08:32 Temperature 36.8 C 36.4 C L 37.1 C Heart Rate Heart Rate [ 69 76 80 Brachial] Respiratory 18 20 16 Rate Blood Pressure 109/57 L 138/76 H 122/59 L [Right Brachial artery] O2 Saturation 94 97 95 05/31/21 05/31/21 05/31/21 09:54 17:00 20:00 Temperature 37.1 C 36.5 C 36.8 C Heart Rate 80 Heart Rate [ 61 66 Brachial] Respiratory 16 20 20 Rate Blood Pressure 107/56 L 121/58 L [Right Brachial artery] O2 Saturation 95 98 96 Oxygen O2 Source Room air I&O (Last 24 Hrs): Intake and Output Totals x24h 05/29/21 05/30/21 05/31/21 23:59 23:59 23:59 Intake Total 1360 1870 690 Balance 1360 1870 690 - Results Results: Laboratory Results WBC 6.0 x10^3/uL (4.8-10.8) 05/31/21 05:20 RBC 3.74 10^6/uL (4.70-6.10) L 05/31/21 05:20 Hgb 13.7 g/dL (14.0-18.0) L 05/31/21 05:20 Hct 41.4 % (42.0-52.0) L 05/31/21 05:20 MCV 110.7 fL (80.0-94.0) H 05/31/21 05:20 MCH 36.6 pg (27.0-31.0) H 05/31/21 05:20 MCHC 33.1 g/dL (32.0-36.0) 05/31/21 05:20 RDW 12.9 % (12.0-15.0) 05/31/21 05:20 Plt Count 289 10^3/uL (130-450) 05/31/21 05:20 MPV 9.5 fL (7.4-11.4) 05/31/21 05:20 Neut # (Auto) 4.1 10^3/uL (1.5-6.6) 05/31/21 05:20 Lymph # (Auto) 0.8 10^3/uL (1.5-3.5) L 05/31/21 05:20 [place] # (Auto) 0.8 10^3/uL (0.0-1.0) 05/31/21 05:20 Eos # (Auto) 0.2 10^3/uL (0.0-0.7) 05/31/21 05:20 Baso # (Auto) 0.1 10^3/uL (0.0-0.1) 05/31/21 05:20 Absolute Nucleated RBC 0.00 x10^3/uL 05/31/21 05:20 Nucleated RBC % 0.0 /100WBC 05/31/21 05:20 Manual Slide Review Indicated 05/31/21 05:20 WBC Morphology NORMAL APPEARANCE (NORMAL) 05/31/21 05:20 Platelet Estimate NORMAL (130-450,000) (NORMAL) 05/31/21 05:20 Platelet Morphology NORMAL APPEARANCE (NORMAL) 05/31/21 05:20 RBC Morph Micro Appear 1+ MACROCYTOSIS (NORMAL) 05/31/21 05:20 ESR 82 mm/Hr (0-20) H 05/31/21 05:20 Sodium 133 mmol/L (135-145) L 05/31/21 05:20 Potassium 3.6 mmol/L (3.5-5.0) 05/31/21 05:20 Chloride 94 mmol/L (101-111) L 05/31/21 05:20 Carbon Dioxide 29 mmol/L (21-32) 05/31/21 05:20 Anion Gap 10.0 (6-13) 05/31/21 05:20 BUN 20 mg/dL (6-20) 05/31/21 05:20 Creatinine 0.9 mg/dL (0.6-1.2) 05/31/21 05:20 Estimated GFR (MDRD) 83 (>89) L 05/31/21 05:20 Glucose 115 mg/dL (70-100) H 05/31/21 05:20 Calcium 8.8 mg/dL (8.5-10.3) 05/31/21 05:20 Total Bilirubin 1.1 mg/dL (0.2-1.0) H 05/30/21 05:08 Direct Bilirubin 0.2 mg/dL (0.1-0.5) 05/30/21 05:08 AST 40 IU/L (10-42) 05/30/21 05:08 ALT 39 IU/L (10-60) 05/30/21 05:08 Alkaline Phosphatase 66 IU/L (42-121) 05/30/21 05:08 Troponin I High Sens 11.9 ng/L (2.3-19.7) 05/30/21 05:08 B-Natriuretic Peptide 36 pg/mL (5-100) 05/30/21 05:08 Total Protein 6.9 g/dL (6.7-8.2) 05/30/21 05:08 Albumin 2.8 g/dL (3.2-5.5) L 05/30/21 05:08 Globulin 4.1 g/dL (2.1-4.2) 05/30/21 05:08 Folate 14.85 ng/mL (5.90 - >24.8) 05/31/21 05:20 Nasal Adenovirus (PCR) NOT DETECTED 05/28/21 22:10 Nasal B. parapertussis DNA (PCR) NOT DETECTED 05/28/21 22:10 Nasal Coronavir 229E PCR NOT DETECTED 05/28/21 22:10 Nasal Coronavir HKU1 PCR NOT DETECTED 05/28/21 22:10 Nasal Coronavir NL63 PCR NOT DETECTED 05/28/21 22:10 Nasal Coronavir OC43 PCR NOT DETECTED 05/28/21 22:10 Nasal Enterovir/Rhinovir PCR NOT DETECTED 05/28/21 22:10 Nasal Influenza B PCR NOT DETECTED 05/28/21 22:10 Nasal Influenza A PCR NOT DETECTED 05/28/21 22:10 Nasal Parainfluen 1 PCR NOT DETECTED 05/28/21 22:10 Nasal Parainfluen 2 PCR NOT DETECTED 05/28/21 22:10 Nasal Parainfluen 3 PCR NOT DETECTED 05/28/21 22:10 Nasal Parainfluen 4 PCR NOT DETECTED 05/28/21 22:10 Nasal RSV (PCR) NOT DETECTED 05/28/21 22:10 Nasal B.pertussis DNA PCR NOT DETECTED 05/28/21 22:10 Nasal C.pneumoniae (PCR) NOT DETECTED 05/28/21 22:10 Marlon Human Metapneumo PCR NOT DETECTED 05/28/21 22:10 Nasal M.pneumoniae (PCR) NOT DETECTED 05/28/21 22:10 Nasal SARS-CoV-2 (PCR) NOT DETECTED 05/28/21 22:10 - Procedures Procedures: Procedures INSPECTION OF LOWER INTESTINAL TRACT, ENDO (04/16/19) Sepsis Event Note (H) - Evaluation Current Stage of Sepsis: Ruled out
[2021-05-31] MEDS: allopurinoL 100 MG TABLET PO SCH (21:20)
[2021-06-01] MEDS: SODIUM CHLORIDE FLUSH 0.9% 10 ML SYRINGE IVP SCH ×2 (00:20→08:45)
[2021-06-01] MEDS: GABAPENTIN 400 MG CAPSULE PO SCH (06:53)
[2021-06-01 07:11] LABS: BASOPHILS # (AUTO) 0.1 10^3/uL (0.0-0.1); BASOPHILS % (AUTO) 1.3 %; EOSINOPHILS # (AUTO) 0.2 10^3/uL (0.0-0.7); EOSINOPHILS % (AUTO) 2.9 %; HCT - HEMATOCRIT 41.5 % (42.0-52.0); HGB - HEMOGLOBIN 13.8 g/dL (14.0-18.0); LYMPHOCYTES # (AUTO) 1.1 10^3/uL (1.5-3.5); LYMPHOCYTES % (AUTO) 17.8 %; MEAN CORPUSCULAR HEMOGLOBIN 35.9 pg (27.0-31.0); MEAN CORPUSCULAR HGB CONC 33.3 g/dL (32.0-36.0); MEAN CORPUSCULAR VOLUME 108.1 fL (80.0-94.0); MEAN PLATELET VOLUME 9.4 fL (7.4-11.4); MONOCYTES # (AUTO) 0.7 10^3/uL (0.0-1.0); MONOCYTES % (AUTO) 10.7 %; NEUTROPHILS # (AUTO) 4.1 10^3/uL (1.5-6.6); NEUTROPHILS % (AUTO) 65.8 %; PLT - PLATELET COUNT 309 10^3/uL (130-450); RED BLOOD COUNT 3.84 10^6/uL (4.70-6.10); RED CELL DISTRIBUTION WIDTH 12.7 % (12.0-15.0); WHITE BLOOD COUNT 6.2 x10^3/uL (4.8-10.8)
[2021-06-01 07:19] LABS: CALCIUM 8.5 mg/dL (8.5-10.3); CREATININE 0.8 mg/dL (0.6-1.2); POTASSIUM 3.9 mmol/L (3.5-5.0)
[2021-06-01] MEDS ORDERED: PANTOPRAZOLE 40 MG TABLET PO SCH (08:00)
[2021-06-01] MEDS: IBUPROFEN 400 MG TABLET PO SCH ×2 (08:43→12:21)
[2021-06-01] MEDS: MULTIVITAMIN TABLET PO SCH (08:44)
[2021-06-01] MEDS: polyethylene glycoL 3350 17 GM PACKET PO SCH (08:45)
[2021-06-01] MEDS: DOCUSATE SODIUM 250 MG CAPSULE PO SCH (08:45)
[2021-06-01] MEDS: LOSARTAN 50 MG TABLET PO SCH (08:45)
[2021-06-01] MEDS: SIMETHICONE CHEW 80 MG TABLET PO SCH (08:45)
[2021-06-01] MEDS: CHOLECALCIFEROL 25 MCG TABLET PO SCH (08:45)
[2021-06-01] MEDS: PROPRANOLOL ER 60 MG CAPSULE PO SCH (08:45)
[2021-06-01] MEDS ORDERED: APIXABAN 5 MG TABLET PO SCH (09:00)
--- NOTE | 2021-06-01 11:12 | Discharge Plan ---
Discharge Plan Problem Reviewed?: Yes Disposition: Home, Self Care Condition: Stable Prescriptions: Ibuprofen [Motrin] 400 mg PO TIDWM PRN #30 tablet PRN Reason: Chest Pain Omeprazole 40 mg PO DAILY #30 cap Diet: Regular Activity Restrictions: Activity as Tolerated Shower Restrictions: No Driving Restrictions: No Instruction Topics: Enoxaparin injection, Ibuprofen tablets and capsules, Dabigatran oral capsules, DVT, Pericarditis, Embolism Pulmonary D[facility] Health Concerns: PE/DVT, pericarditis/chest pain Plan of Treatment: Please continue finish your Lovenox shots, then finish oral blood thinner which was prescribed for you, then you may have blood thinner for total 6 months for your PE and DVT, you may followup with your PCP continue management of your PE and DVT. Your chest pain is resolved now, which is likely caused by your pericarditis and small pleural effusion plus PE. You may use Ibuprofen to control your chest pain, you may followup with your PCP to have ECHO study, continue blood thinner to treat your PE. Care Goals: stabilization and improve/resolve of your medical conditions. Assessment: discussed the care plan with you, answered your questions, you understood. Additional Instructions or Follow Up instructions: You may followup with your PCP in 1-2 weeks. Should your symptoms return or worsen, you may present ER or call 911 for help. No Smoking: If you smoke, Please STOP! Call for help. Follow-up with: Provider,Other [Primary Care Provider] -
--- NOTE | 2021-06-01 11:33 | DISCHARGE SUMMARY ---
Discharge Summary Admit Date: 05/28/21 Discharge Date: 06/01/21 Discharging Provider: Caio Duffy Condition at Discharge: Stable Discharge Disposition: Home, Self Care Discharge Facility Name: home - DIAGNOSES Discharge Diagnoses with Status of Each Condition: (1) Pulmonary embolism pt has no acute respiratory distress. he denies any more chest pain. pt was prescribed Lovenox for 7 days and blood thinner for one month. pt is advised to followup with his PCP to have total 6 months blood thinner to treat his PE and followup with coagulation study as needed with his PCP. We do not have ECHO study until 06/07/21, preliminary study did not reveal right heart strain. advise pt followup with his PCP to have out-pt ECHO study. (2) Pericarditis pt denies any more chest pain. pt is prescribed Ibuprofen for his pericarditis and PPI to protect his GI. Followup with his PCP to continue management. (3) Pleural effusion pt denies any more chest pain. pt has stable respiratory status. pt need time for his mild pleural effusion resolved by its own. (4) DVT (deep venous thrombosis) pt was prescribed blood thinner to treat for his DVT, followup with his PCP continue management. (5) Pleuritic chest pain resolved. pt is prescribed ibuprofen (6) Obstructive sleep apnea on CPAP stable, Continue home CPAP at night for BEE (7) Osteoarthritis Stable. resume home pain meds (8) Gout Stable. Takes allopurinol at home. (9) Depression Stable. (10) Hypertension Stable. resume his home meds (11) Anxiety Stable. (12) Leukocytosis, unspecified Resolved. (13) Hypoxia Resolved - HPI History of Present Illness: refer from Dr. Garcia's HPI on 05/28/21 Patient is a 71-year-old male who presented to the ED with pleuritic chest pain. His symptoms started 4 days ago on Monday when he started having difficulty taking deep breaths. This was associated with pain. He went to sleep and woke up in the middle of the night because he could not breathe. He saw his primary care physician the following day and was advised to go to the emergency department for a CT scanning of the chest. He deferred this today until today Monday when his dyspnea had gotten progressively worse. He called EMS in the morning. In the ED he had a CT angiogram of the chest from which was diagnosed with a PE. He was initially prescribed Xarelto however it seems his insurance did not cover it consequently he was prescribed Pradaxa. He was also prescribed Lovenox for 5 days. The patient has not yet picked up his medications from the pharmacy. He returned to the ED with intractable/severe pleuritic chest pain which is worse on the right side. At bedside his pain is quite significant. He appears very uncomfortable. He also reported abdominal pain but denied nausea, vomiting, fever or chills. He lives alone and normally gets around using a walker or walking on his own. - ALLERGIES Allergies/Adverse Reactions: Allergies Allergy/AdvReac Type Severity Reaction Status Date / Time No Known Drug Allergies Allergy Verified 05/28/21 21:45 - MEDICATIONS Home Medications: Ambulatory Orders Medication Instructions Recorded Confirmed Potassium &Magnesium Aspartate [Ra 1 cap PO DAILY 04/16/19 05/29/21 Potassium-Magnesium Asp 250] Cholecalciferol (Vitamin D3) 25 mcg PO DAILY 05/29/21 05/29/21 [Vitamin D3] Colchicine 0.6 mg PO PRN PRN 05/29/21 05/29/21 Gabapentin [Neurontin] 400 mg PO TID 05/29/21 05/29/21 Losartan [Cozaar] 50 mg PO DAILY 05/29/21 05/29/21 Multivitamin 1 tab PO DAILY 05/29/21 05/29/21 Propranolol HCl 20 mg PO DAILY 05/29/21 05/29/21 Vitamin B Complex 1 tab PO DAILY 05/29/21 05/29/21 allopurinoL [Allopurinol] 300 mg PO DAILY 05/29/21 05/29/21 allopurinoL [Zyloprim] 100 mg PO QPM 05/29/21 05/29/21 methocarbamoL [Methocarbamol] 500 mg PO TID PRN 05/29/21 05/29/21 Enoxaparin [Lovenox] 120 mg SUBQ BID 05/30/21 Ibuprofen [Motrin] 400 mg PO TIDWM PRN #30 tablet 06/01/21 Omeprazole 40 mg PO DAILY #30 cap 06/01/21 - PHYSICAL EXAM AT DISCHARGE General Appearance: positive: No acute distress, Alert. negative: Lethargic Eyes Bilateral: positive: Normal inspection, No lid inflammation ENT: positive: ENT inspection nml, No signs of dehydration. negative: Purulent nasal drainage Neck: positive: Nml inspection, Trachea midline. negative: Tracheal deviation Respiratory: positive: Chest non-tender, No respiratory distress, Breath sounds nml. negative: Wheezes Cardiovascular: positive: Regular rate & rhythm. negative: Tachycardia, Bradycardia, Systolic murmur Peripheral Pulses: positive: 2+ Abdomen: positive: Non-tender, Nml bowel sounds, No distention. negative: Tenderness Back: positive: Nml inspection Skin: positive: Color nml, Warm, Dry. negative: Cyanosis Extremities: positive: Non-tender, Full ROM, Nml appearance Neurologic/Psychiatric: positive: Oriented x3, Motor nml, Sensation nml, Mood/affect nml. negative: Weakness, Sensory loss, Facial droop, Slurred/abnml speech, Depressed mood/affect - LABS Result Diagrams: 06/01/21 06:53 06/01/21 06:53 - SEPSIS Current Stage of Sepsis: Ruled out - FOLLOW UP Follow Up: Please continue finish your Lovenox shots, then finish oral blood thinner which was prescribed for you, then you may have blood thinner for total 6 months for your PE and DVT, you may followup with your PCP continue management of your PE and DVT. Your chest pain is resolved now, which is likely caused by your pericarditis and small pleural effusion plus PE. You may use Ibuprofen to control your chest pain, you may followup with your PCP to have ECHO study, continue blood thinner to treat your PE and DVT. You may followup with your PCP in 1-2 weeks. Should your symptoms return or worsen, you may present ER or call 911 for help. - TIME SPENT Time Spent in Discharge (Minutes): 30
[2021-06-01 13:14] VITALS: BP 122/74
== END 2021-06-01 12:10 | disposition home or self-care (01) | DRG 176 ==
LOC: EDUNIT# → ED 21:34 → MS2 22:07 → OBSVTOIN 05-29 12:47
PROVIDERS: ADMIT Internal Medicine; ATTEND Nurse Practitioner Gerontology
DX: I26.94 Multiple subsegmental thrombotic pulmonary emboli without acute cor pulmonale (principal); I31.9 Disease of pericardium, unspecified; J90 Pleural effusion, not elsewhere classified; I82.431 Acute embolism and thrombosis of right popliteal vein; I82.411 Acute embolism and thrombosis of right femoral vein; G47.33 Obstructive sleep apnea (adult) (pediatric); M10.9 Gout, unspecified; M19.90 Unspecified osteoarthritis, unspecified site; G89.29 Other chronic pain; R07.89 Other chest pain; Z79.01 Long term (current) use of anticoagulants; F32.A Depression, unspecified; I10 Essential (primary) hypertension; F41.9 Anxiety disorder, unspecified; D72.829 Elevated white blood cell count, unspecified; R09.02 Hypoxemia; R10.9 Unspecified abdominal pain; M1A.9XX0 Chronic gout, unspecified, without tophus (tophi); Z20.822 Contact with and (suspected) exposure to COVID-19
CPT/HCPCS: 36415; 71045; 71275; 80048; 80053; 80076; 82746; 83690; 83880; 84484; 85025; 85651; 86140; 87631; 93005; 93970; 94761; 96372; 96374; 96375; 96376; 99285; A9270; G0378; J1170; J1650; J2060; Q9967; 0202U

== ENCOUNTER 2021-07-22 12:21 | Outpatient (CLI) | payer MEDICARE, OTHER ==
--- NOTE | 2021-07-22 15:59 | Ultrasound Report ---
PROCEDURE: Duplex Ext Veins Right INDICATIONS: DVT OF LOWER EXTREMITY TECHNIQUE: Real-time imaging, as well as color and pulse Doppler interrogation, were performed of the lower extr emity deep veins from the inguinal ligament to the popliteal fossa. COMPARISON: 05/30/2021. FINDINGS: Occlusive thrombus involving the right superficial femoral and popliteal veins is stable in appearance. IMPRESSION: Right lower extremity deep vein thrombosis with occlusive thrombus involving the right superficial fe moral vein and right popliteal vein persists with no significant change compared to 05/30/2021. Reviewed by: Stella Tapia MD, PhD on 07/22/2021 3:58 PM PST Approved by: Stella Tapia MD, PhD on 07/22/2021 3:58 PM PST Station ID: [id number]
== END 2021-07-22 12:22 | disposition home or self-care (01) ==
LOC: DI 12:21
PROVIDERS: ATTEND Nurse Practitioner Family
DX: I82.411 Acute embolism and thrombosis of right femoral vein (principal)

== ENCOUNTER 2021-07-25 12:57 | Outpatient (CLI) | payer MEDICARE, OTHER ==
--- NOTE | 2021-07-25 14:58 | Ultrasound Report ---
PROCEDURE: Head or Neck Soft Tissue INDICATIONS: POSTERIOR NECK MASS TECHNIQUE: Real time scanning was performed of the neck region of interest, with image documentation . COMPARISON: None. FINDINGS: Multiple grayscale and color Doppler images over the patient directed palpable area of conc tesha were acquired. This localized to the posterior, inferior right neck near the trapezius. There are multiple [id number] subcutaneous soft tissue masses in the superficial tissues of the area of concern measuring approximately 3.3 x 1.4 x 3.4 cm. No internal vascularity. No evidence for invasion into the underlying soft tissues. No focal fluid collections. This is somewhat compressible and mobi le during image acquisition. IMPRESSION: Lobular isoechoic to fat superficial subcutaneous mass measuring 3.3 x 1.4 x 3.4 cm. This nonvascular mass is mobile and partially compressible. This may represent a lipoma. However given patient's hist ory of melanoma and its proximity to previous resection scar, consider further characterization with contrast-enhanced MRI. Reviewed by: Dimitry Cade MD on 07/25/2021 1:57 PM MEDARDO Approved by: Dimitry Cade MD on 07/25/2021 1:57 PM [place] Station ID: [id number]
== END 2021-07-25 12:58 | disposition home or self-care (01) ==
LOC: DI 12:57
PROVIDERS: ATTEND Nurse Practitioner Family
DX: R22.1 Localized swelling, mass and lump, neck (principal)

== ENCOUNTER 2021-09-10 14:37 | Outpatient (CLI) | payer MEDICARE, OTHER ==
--- NOTE | 2021-09-10 16:24 | Ultrasound Report ---
PROCEDURE: Duplex Ext Veins Right INDICATIONS: RIGHT DVT TECHNIQUE: Real-time imaging, as well as color and pulse Doppler interrogation, were performed of the lower extr emity deep veins from the inguinal ligament to the popliteal fossa. COMPARISON: July 22, 2021 FINDINGS: Redemonstrated partial compressibility and intraluminal thrombus throughout the right lower extremity, spanning from the common femoral to popliteal veins. IMPRESSION: Persistent right lower extremity DVT. Reviewed by: Anson Membreno MD on 09/10/2021 4:22 PM PDT Approved by: Anson Membreno MD on 09/10/2021 4:22 PM PDT Station ID: [id number]
== END 2021-09-10 14:38 | disposition home or self-care (01) ==
LOC: DI 14:37
PROVIDERS: ATTEND Physician Assistant
DX: I82.411 Acute embolism and thrombosis of right femoral vein (principal); I82.431 Acute embolism and thrombosis of right popliteal vein

== ENCOUNTER 2021-09-10 15:10 | Outpatient (CLI) | payer MEDICARE, OTHER ==
--- NOTE | 2021-09-10 15:57 | XRAY Report ---
PROCEDURE: Hip w/Pelvis 2-3V RT INDICATIONS: RIGHT HIP PAIN TECHNIQUE: AP pelvis with lateral view(s) of the right hip. COMPARISON: None. FINDINGS: Bones: Bilateral hip arthroplasties. Hip prostheses are intact. No fractures or dislocations. Pelvi c ring appears intact. No suspicious bony lesions. Degenerative disc and facet disease in the lower lumbar spine. Soft tissues: The visualized bowel gas pattern is normal. No suspicious soft tissue calcifications. IMPRESSION: 1. Bilateral hip arthroplasties. 2. No acute osseous abnormalities. Reviewed by: Mercedez Hodges MD on 09/10/2021 3:55 PM PDT Approved by: Mercedez Hodges MD on 09/10/2021 3:55 PM PDT Station ID: [id number]
== END 2021-09-10 15:11 | disposition home or self-care (01) ==
LOC: DI 15:10
PROVIDERS: ATTEND Physician Assistant
DX: M25.551 Pain in right hip (principal); Z96.643 Presence of artificial hip joint, bilateral; I82.411 Acute embolism and thrombosis of right femoral vein; I82.431 Acute embolism and thrombosis of right popliteal vein

== ENCOUNTER 2022-03-16 10:48 | Outpatient (CLI) | payer MEDICARE, OTHER ==
[2022-03-16 11:15] VITALS: BP 108/70
--- NOTE | 2022-03-16 11:15 | SLEEP CARE CONSULTATION ---
Information from patient questionnaire entered by Sarah Arciniega. I have reviewed and concur with the information entered by Sarah Arciniega. This document represents the service I personally performed and the decisions made by me, Suzanna Hays ARNP. History of Present Illness Service Date and Time: 03/16/2022 1048 Previous diagnosis: Very Severe, Obstructive Sleep Apnea-Hypopnea Syndrome AHI: 75 (in 2012) Reason for follow up: annual (LAST SEEN 12/2020 RESMED) Equipment type: CPAP (RESMED) Equipment obtained from: [facility] (getting supplies as needed) Mask style: Nasal pillows Backup mask available: Yes (other mask) Last cushion change: 3 weeks Prior sleep studies: Yes Year and Where: 2013 - [facility] additional information: CELSO VARGHESE was diagnosed to have very severe, AHI 75, obstructive sleep apnea-hypopnea syndrome and returned today for CPAP therapy annual follow-up. Sleep Study - Results Prior sleep studies: Yes Year and Where: 2013 - [facility] CPAP Compliance Data - Data Reviewed with Patient Average duration of nightly device use: 10 hrs 57 min Compliance rate %: 99 (09/15/21-03/13/22; 179/180 days used) Current pressure setting (cmH2O): 13.2-18.4 Average residual AHI: 1.4 Central apnea: 0.5 Obstructive apnea: 0.0 Subjective Patient concerns: denies: aerophagia, mask discomfort, air blowing in eyes, mask leak noise, condensation in mask/hose, nasal congestion, dry mouth, nose, throat, epistaxis Observed to snore while using device: No Current pressure setting perceived as: comfortable On therapy, patient: reports: sleeping better, awakening more refreshed, being more awake and alert during the day, more rested overall. denies: drowsiness while driving Initial [place] Sleepiness Scale score: 1 (in 2011) Current [place] Sleepiness Scale score: 1 (03/16/2022) Allergies and Home Medications Drug allergies reviewed: Yes (NKDA) Home medication list reviewed: Yes (Xarelto) Review of Systems Review of systems same as previous: Yes (no changes) Physical Exam Vital signs obtained and entered by: SARAH Brown MA Blood Pressure: 108/70 (left arm) Cuff size: long Heart Rate: 67 O2 Saturation: 97 Height: 5 ft 7 in Weight: 291 lb 3.2 oz Body Mass Index: 45.6 BMI Classification: Morbidly Obese Impression and Plan 1. Obstructive Sleep Apnea-Hypopnea Syndrome, very severe, with good treatment compliance and good apnea control. On CPAP therapy, the patient has better sleep quality and is more rested overall. Patient has significant improvement of their sleep apnea and are satisfied with current CPAP therapy. Patient denies problems with oral dryness, nasal congestion, epistaxis, skin irritation or aerophagia. Patient states he is having more trouble with insomnia. He will wake up at night and not be able to sleep. He states he will be discussing this with his primary care doctor at their visit this week. Patient states he quit drinking alcohol about 4 months ago. He used to have wine as he was winding down for the night prior to bedtime. He states he is not having trouble with having stopped drinking but now he is eating ice cream at night. He feels he is addicted to sugar. He is also going to talk to his PCP about this. Patient's apnea severity and rationale for treatment to reduce apnea, improve sleep quality and reduce cardiovascular and cerebrovascular events was reviewed. I also reviewed the benefit of consistent device use of CPAP for hypertension. 2. Obesity, unspecified. Currently patients BMI is 45.6. Obesity increases the risk of apnea, CPAP pressure requirements and overall health risks especially cardiovascular and diabetes. Thus patient is advised to lose weight. Weight loss can be done with reducing portion size, reducing refined foods and balancing content with vegetables, fruit and whole grain foods. In addition, patient encouraged to get regular exercise. * Continue auto CPAP pressure at 13.2-18.4 cmH2O * Update supplies * Notify me if snoring with mask or feeling that the pressure is too much or too little * Attempt to lose weight * Call this office if any problems using CPAP * Return for follow up in 1 year, or sooner if concerns arise Counseling Topics: Spare mask, Weight loss health impact Visit Type: In Office Time Spent with Patient (minutes): 20 Provider Statement: I spent 100% of the Face to Face Visit with the patient with greater than 50% spent counseling the patient and coordination of care.
== END 2022-03-16 10:49 | disposition home or self-care (01) ==
LOC: SC 10:48
PROVIDERS: ATTEND Nurse Practitioner Family
DX: G47.33 Obstructive sleep apnea (adult) (pediatric) (principal); E66.01 Morbid (severe) obesity due to excess calories; Z68.42 Body mass index [BMI] 45.0-49.9, adult
CPT/HCPCS: 99213; G0463; 99212

== ENCOUNTER 2022-10-12 12:31 | Outpatient (CLI) | payer MEDICARE, OTHER ==
--- NOTE | 2022-10-12 12:52 | XRAY Report ---
PROCEDURE: Lumbar Spine 2 View INDICATIONS: SCIATIA TECHNIQUE: 3 views of the lumbar spine were acquired. COMPARISON: CT lumbar spine 11/15/2016 FINDINGS: Bones: 5 [id number] vertebrae are present. There is dramatic trace retrolisthesis is recomm ended. L4, L5 on S1 and trace anterolisthesis of L4-5. Moderate to severe disc space narrowing is pre sent at L1-2, L3-4, L4-5, mild at L2-3, L3-4. Multilevel bridging osteophytes are present. Multilevel foraminal narrowing is present severe at L5-S1, moderate L4-5. No vertebral body compression fractur es. No suspicious bony lesions. Soft tissues: Overlying bowel gas pattern is normal. No suspicious soft tissue calcifications. IMPRESSION: Degenerative changes most severe at L5-S1. Reviewed by: Mariana Wilson MD on 10/12/2022 12:51 PM PDT Approved by: Mariana Wilson MD on 10/12/2022 12:51 PM PDT Station ID: [id number]
== END 2022-10-12 12:32 | disposition home or self-care (01) ==
LOC: DI.S 12:31
PROVIDERS: ATTEND Physician Assistant
DX: M47.817 Spondylosis without myelopathy or radiculopathy, lumbosacral region (principal); M47.816 Spondylosis without myelopathy or radiculopathy, lumbar region

== ENCOUNTER 2023-03-22 12:54 | Outpatient (CLI) | payer MEDICARE, OTHER ==
--- NOTE | 2023-03-22 13:18 | Sleep Patient Instructions ---
Sleep Center Visit Summary - Patient Visit Information Reason for Visit: Annual visit for PAP therapy - Patient Instructions Additional Instructions: You will continue with CPAP therapy with pressure changed to 15-18.4 cmH2O. A supply prescription will be updated with your DME. We encourage you to continue to try to lose weight. Please follow up with the sleep care office in 1 year. - Clinic Information Contact: [facility] [address] [place] [address] [email or web address] T: [phone]
--- NOTE | 2023-03-22 13:20 | SLEEP CARE CONSULTATION ---
Information from patient questionnaire entered by Michael Arciniega. I have reviewed and concur with the information entered by Michael Arciniega. This document represents the service I personally performed and the decisions made by , Suzanna Hays ARNP. History of Present Illness Service Date and Time: 03/22/2023 1254 Previous diagnosis: Very Severe, Obstructive Sleep Apnea-Hypopnea Syndrome AHI: 75 (in 2012) Reason for follow up: annual (LAST SEEN 02/2022) Equipment type: CPAP (RESMED 10, s/u 09/2019) Equipment obtained from: [employer] (getting supplies as needed) Mask style: Nasal pillows Backup mask available: Yes (old mask) Last cushion change: 1 week Prior sleep studies: Yes Year and Where: 2013 - [facility] additional information: CELSO VARGEHSE was diagnosed to have very severe, AHI 75, obstructive sleep apnea-hypopnea syndrome and returned today for CPAP therapy annual follow-up. Sleep Study - Results Prior sleep studies: Yes Year and Where: 2013 - [facility] CPAP Compliance Data - Data Reviewed with Patient Average duration of nightly device use: 10 HRS 39 MINS Compliance rate %: 99 (03/19/22-03/18/23; 364/365 days used) Current pressure setting (cmH2O): 13.2-18.4 Average residual AHI: 1.9 Central apnea: 0.7 Obstructive apnea: 0.1 Hypopnea: 1.1 Average large leak: 3.8 L/min Subjective Missed days of use due to: reports: other (power outage) Patient concerns: denies: aerophagia, mask discomfort, air blowing in eyes, mask leak noise, condensation in mask/hose, nasal congestion, dry mouth, nose, throat, epistaxis Observed to snore while using device: No Current pressure setting perceived as: comfortable On therapy, patient: reports: sleeping better, awakening more refreshed, being more awake and alert during the day, more rested overall. denies: drowsiness while driving Initial [place] Sleepiness Scale score: 1 (in 2011) Current [place] Sleepiness Scale score: 1 (03/22/23) Allergies and Home Medications Known drug allergies: No Drug allergies reviewed: Yes Home medication list reviewed: Yes (no changes) Allergy and home medication list: Allergies No Known Drug Allergies Allergy (Verified 03/21/23 12:38) Review of Systems Review of systems same as previous: Yes (NO CHANGE ) Physical Exam Vital signs obtained and entered by: MICHAEL Brown MA Blood Pressure: 143/85 (LEFT) Cuff size: wrist Heart Rate: 71 O2 Saturation: 97 Height: 5 ft 7 in Weight: 302 lb 12.8 oz Body Mass Index: 47.4 BMI Classification: Morbidly Obese Impression and Plan 1. Obstructive Sleep Apnea-Hypopnea Syndrome, very severe, with good treatment compliance and good apnea control. On CPAP therapy, the patient has better sleep quality and is more rested overall. He states his machine shut off once 2 weeks ago and he had to get tech support at [facility]. They were able to get it working and it has not done it again. He will call them back if it reoccurs. Patient has significant improvement of their sleep apnea and is satisfied with current CPAP therapy. Patient denies problems with oral dryness, nasal congestion, epistaxis, skin irritation or aerophagia. Patient's apnea severity and rationale for treatment to reduce apnea, improve sleep quality and reduce cardiovascular and cerebrovascular events was reviewed. I also reviewed the benefit of consistent device use of CPAP for hypertension. 2. Obesity, unspecified. Currently patients BMI is 47.4. Obesity increases the risk of apnea, CPAP pressure requirements and overall health risks especially cardiovascular and diabetes. Thus patient is advised to lose weight. * Change auto CPAP pressure to 15-18.4 cmH2O * Update supply prescription * Notify me if snoring with mask or feeling that the pressure is too much or too little * Attempt to lose weight * Call this office if any problems using CPAP * Return for follow up in 1 year, or sooner if concerns arise Counseling Topics: Spare mask, Weight loss health impact Prescriptions: Device supplies Follow up with Sleep Care in: 1 year Visit Type: In Office Time Spent with Patient (minutes): 20 Provider Statement: I spent 100% of the Face to Face Visit with the patient with greater than 50% spent counseling the patient and coordination of care.
[2023-03-22 14:56] VITALS: BP 143/85; O2SAT 97
== END 2023-03-22 12:55 | disposition home or self-care (01) ==
LOC: SC 12:54
PROVIDERS: ATTEND Nurse Practitioner Family
DX: G47.33 Obstructive sleep apnea (adult) (pediatric) (principal); E66.01 Morbid (severe) obesity due to excess calories; Z68.42 Body mass index [BMI] 45.0-49.9, adult
CPT/HCPCS: 99213; G0463; 99212

== ENCOUNTER 2023-06-21 15:55 | Outpatient (CLI) | payer MEDICARE, OTHER ==
--- NOTE | 2023-06-23 19:45 | XRAY Report ---
PROCEDURE: Hip w/Pelvis 2-3V LT INDICATIONS: LEFT HIP PAIN TECHNIQUE: AP view of the pelvis as well as a frog leg view of the left hip were acquired. COMPARISON: 09/10/2021 FINDINGS: Bones: No fractures or dislocations. No suspicious bony lesions. Bilateral hip arthroplasty hardware can be seen. No findings of failure or loosening can be seen on t his study. Soft tissues: No suspicious soft tissue calcifications or masses. IMPRESSION: Unremarkable bilateral hip arthroplasty hardware. Reviewed by: Hernán Whitmore MD on 06/23/2023 6:43 PM [place] Approved by: Hernán Whitmore MD on 06/23/2023 6:43 PM [facility] Station ID: [id number]
== END 2023-06-21 15:56 | disposition home or self-care (01) ==
LOC: DI 15:55
PROVIDERS: ATTEND Registered Nurse
DX: M25.552 Pain in left hip (principal); Z96.642 Presence of left artificial hip joint